=== PATIENT | male | born 1980 | race Caucasian/White ===

== ENCOUNTER 2016-07-27 08:56 | Inpatient (IN) | payer MEDICARE, OTHER ==
[~2016-07-27] VITALS: Ht 170.2 cm; Wt 115.6 kg
[~2016-07-27 08:56] MED LIST: CELE40TA PO; DIOV160T60 PO; GEMF600 PO; PANT20 PO; POTA25TA2 PO; SERO300T2 OR; VENL75XR PO; VITA50TA3 PO
[2016-07-27 09:04] VITALS: BP 139/84; PULSE 109; RESP 20; TEMP 98.3; O2SAT 95
--- NOTE | 2016-07-27 09:28 | PD ---
HPI Chief Complaint: Psychiatric Symptoms Time Seen by Provider: 09:15 Travel History International Travel<30 days: No Contact w/Intl Traveler<30days: No Traveled to known affect area: No History of Present Illness HPI This is a 36-year-old male who presents to the emergency department with history of schizophrenia who presents to the emergency department reporting increasing voices telling him to hurt himself over the past 4 days, constant, severe. He's had thoughts like this in the past but never this bad. He says he is compliant with his schizophrenia medication. He is brought in under a Bentley act. He reportedly [facility] PFSH Past Medical History Autoimmune Disease: Yes Blood Disorders: No Anxiety: Yes Depression: Yes Cancer: No Cardiovascular Problems: Yes High Cholesterol: Yes Chemotherapy: No Diabetes: Yes (METABOLIC SYNDROME) Diminished Hearing: No Endocrine: No Gastrointestinal Disorders: Yes (ENLARGED LIVER) GERD: Yes Genitourinary: No Hypertension: Yes Immune Disorder: No Medical other: Yes (GERD) Musculoskeletal: No Neurologic: No Reproductive: No Respiratory: No Immunizations Current: Yes Radiation Therapy: No Sickle Cell Disease: No Thyroid Disease: No Tetanus Vaccination: Unknown PNEUMOCCOCAL Vaccine (Year): 2 Past Surgical History Abdominal Surgery: Yes (gall bladder 2007) AICD: No Arteriovenous Shunt: No Cholecystectomy: Yes (2007) Insulin Pump: No Joint Replacement: No Pacemaker: No Other Surgery: No Social History Alcohol Use: No Tobacco Use: No Substance Use: No Allergies-Medications (Allergen,Severity, Reaction): Coded Allergies: No Known Allergies (Verified , 07/27/16) Reported Meds & Prescriptions Reported Meds & Active Scripts Active Reported Cerave (Emollient) 1 Cre Cre TOP BID Hydrochlorothiazide 12.5 Mg Cap 12.5 Mg PO DAILY Clobetasol Emollient Topical 0.05% Cream 1 Applic TOPICAL DAILY Sucralfate 1 Gm Tab 1 Gm PO HS on empty stomach [Escitolopram] 10 Mg PO DAILY Triamcinolone (Triamcinolone (Bulk)) 1 Pow Pow 0.1 % TOP BID Hydroxyzine HCl 25 Mg Tab 25 Mg PO HS Flexeril (Cyclobenzaprine HCl) 5 Mg Tab 5 Mg PO BID Trazodone (Trazodone HCl) 100 Mg Tab 100 Mg PO HS Buspirone (Buspirone HCl) 10 Mg Tab 10 Mg PO BID Omeprazole 40 Mg Cap 40 Mg PO DAILY Valsartan 160 Mg Tab 160 Mg PO DAILY Review of Systems Except as stated in HPI: all other systems reviewed are Neg Physical Exam Narrative GENERAL:Well appearing, no acute distress SKIN: Warm and dry. HEAD: Atraumatic. Normocephalic. EYES: Involuntary horizontal eye movements. ENT: Moist mucous membranes NECK: Trachea midline. CARDIOVASCULAR: Regular rate and rhythm. No murmur appreciated. RESPIRATORY: Clear to auscultation. Breath sounds equal bilaterally. GASTROINTESTINAL: Abdomen soft, non-tender, nondistended. MUSCULOSKELETAL: No obvious deformities. NEUROLOGICAL: Awake and alert. No obvious cranial nerve deficits. Moving all extremities. PSYCHIATRIC: Does acknowledge auditory hallucinations, has preserved insight and judgment. Data Data Last Documented VS Vital Signs Date Time Temp Pulse Resp B/P Pulse Ox O2 Delivery O2 Flow Rate FiO2 07/27/16 11:21 91 20 159/87 97 07/27/16 09:04 98.3 Orders Complete Blood Count With Diff (07/27/16 09:15) Comprehensive Metabolic Panel (07/27/16 09:15) Drug Screen, Random Urine (07/27/16 09:15) Psych Screen (07/27/16 09:15) Alcohol (Ethanol) (07/27/16 09:15) Labs Laboratory Tests Test 07/27/16 09:10 White Blood Count 2.3 TH/MM3 Red Blood Count 4.53 MIL/MM3 Hemoglobin 13.6 GM/DL Hematocrit 39.8 % Mean Corpuscular Volume 87.8 FL Mean Corpuscular Hemoglobin 30.1 PG Mean Corpuscular Hemoglobin 34.3 % Concent Red Cell Distribution Width 15.7 % Platelet Count 38 TH/MM3 Mean Platelet Volume 6.9 FL Neutrophils (%) (Auto) 72.3 % Lymphocytes (%) (Auto) 20.4 % Monocytes (%) (Auto) 5.6 % Eosinophils (%) (Auto) 1.1 % Basophils (%) (Auto) 0.6 % Neutrophils # (Auto) 1.7 TH/MM3 Lymphocytes # (Auto) 0.5 TH/MM3 Monocytes # (Auto) 0.1 TH/MM3 Eosinophils # (Auto) 0.0 TH/MM3 Basophils # (Auto) 0.0 TH/MM3 CBC Comment AUTO DIFF Differential Comment AUTO DIFF CONFIRMED Platelet Estimate LOW Platelet Morphology Comment NORMAL Sodium Level 138 MEQ/L Potassium Level 3.3 MEQ/L Chloride Level 104 MEQ/L Carbon Dioxide Level 25.3 MEQ/L Anion Gap 9 MEQ/L Blood Urea Nitrogen 9 MG/DL Creatinine 0.98 MG/DL Estimat Glomerular Filtration 87 ML/MIN Rate Random Glucose 209 MG/DL Calcium Level 8.6 MG/DL Total Bilirubin 0.7 MG/DL Aspartate Amino Transf 38 U/L (AST/SGOT) Alanine Aminotransferase 55 U/L (ALT/SGPT) Alkaline Phosphatase 134 U/L Total Protein 7.7 GM/DL Albumin 3.6 GM/DL Urine Opiates Screen NEG Urine Barbiturates Screen NEG Urine Amphetamines Screen NEG Urine Benzodiazepines Screen NEG Urine Cocaine Screen NEG Urine Cannabinoids Screen NEG Ethyl Alcohol Level LESS THAN 3 MG/DL MDM Medical Decision Making Medical Screen Exam Complete: Yes Emergency Medical Condition: Yes Interpretation(s) afebrile, tachycardic leukopenia, thrombocytopenia mild hypokalemia urine drug screen negative alcohol negative Differential Diagnosis Schizophrenia, drug intoxication, alcohol intoxication Narrative Course This is a 36-year-old male who presents to the emergency department with auditory hallucinations saying that he should kill himself. He has a history of schizophrenia. Labs demonstrate leukopenia as well as, thrombocytopenia. In the absence of an alternate explanation a think this may be related to his antipsychotic medications. I spoke to his caregiver at [facility] who reports that he recently was taken off of his Seroquel because his platelets were low. He has been seeing a toy assembler at [facility] who says he has at problem with his spleen. He said his platelet count was low enough to do anything about it right now. I briefly talked to Dr. Michelle. We both agree that the patient can likely be admitted to the psychiatric service if necessary and have medicine consult on him as this is not an active issue, and seems to be subacute. Dalia Howe MD Jul 27, 2016 09:28
[2016-07-27 09:53] LABS: AUTOMATED NEUTROPHIL # 1.7 TH/MM3 (1.8-7.7); BASOPHIL % 0.6 % (0.0-2.0); EOSINOPHIL % 1.1 % (0.0-4.0); HEMATOCRIT 39.8 % (39.0-51.0); LYMPH % 20.4 % (9.0-44.0); LYMPHOCYTE # 0.5 TH/MM3 (1.0-4.8); MEAN CELL VOLUME 87.8 FL (80.0-100.0); MEAN CORPUSCULAR HEMOGLOBIN 30.1 PG (27.0-34.0); MEAN CORPUSCULAR HGB CONC 34.3 % (32.0-36.0); MONO % 5.6 % (0.0-8.0); NEUT % 72.3 % (16.0-70.0); PLATELET COUNT 38 TH/MM3 (150-450); RED BLOOD COUNT 4.53 MIL/MM3 (4.50-5.90); RED CELL DISTRIBUTION WIDTH 15.7 % (11.6-17.2); WHITE BLOOD COUNT 2.3 TH/MM3 (4.0-11.0)
[2016-07-27 09:58] LABS: AMPHETAMINE, URINE NEG (NEG); BARBITURATES, URINE NEG (NEG); COCAINE, URINE NEG (NEG); HEMO FLAGS AUTO DIFF
[2016-07-27 10:13] LABS: ANION GAP 9 MEQ/L (5-15); AST (GOT) 38 U/L (15-37); BICARBONATE 25.3 MEQ/L (21.0-32.0); BLOOD UREA NITROGEN 9 MG/DL (7-18); CHLORIDE 104 MEQ/L (98-107); GLOMERULAR FILTRATION RATE 87 ML/MIN (>89); POTASSIUM 3.3 MEQ/L (3.5-5.1); SODIUM (NA) 138 MEQ/L (136-145)
[2016-07-27 10:16] LABS: ALKALINE PHOSPHATASE 134 U/L (45-117); ALT (GPT) 55 U/L (12-78); TOTAL BILIRUBIN ADULT 0.7 MG/DL (0.2-1.0)
[2016-07-27 10:40] LABS: PLATELET ESTIMATE SMEAR LOW (NORMAL); PLATELET MORPHOLOGY NORMAL (NORMAL); SCAN/DIFF AUTO DIFF CONFIRMED
[2016-07-27 11:21] VITALS: BP 159/87; PULSE 91; RESP 20; O2SAT 97
[2016-07-27] MEDS ORDERED: HYDR12.57 PO (11:42)
[2016-07-27] MEDS ORDERED: CYCL5TAB PO (11:42)
[2016-07-27] MEDS ORDERED: OMEP40CA2 PO (11:42)
[2016-07-27] MEDS ORDERED: TRAZ100T4 PO (11:42)
[2016-07-27] MEDS ORDERED: VALS1TAB65 PO (11:42)
[2016-07-27] MEDS ORDERED: BUSP10TA PO (11:42)
[2016-07-27] MEDS ORDERED: TRIAPOW6 TOP (11:42)
[2016-07-27] MEDS ORDERED: CERACRE TOP (11:42)
[2016-07-27] MEDS ORDERED: SUCR1TAB PO (11:42)
[2016-07-27] MEDS ORDERED: ESCITALOPRAM PO (11:42)
[2016-07-27] MEDS ORDERED: CLOB0.0571 TOPICAL (11:42)
[2016-07-27] MEDS ORDERED: HYDR-3133 PO (11:42)
[2016-07-27 14:08] VITALS: BP 146/68
[2016-07-27 15:01] VITALS: BP 137/82; PULSE 84; RESP 20; TEMP 97.8; O2SAT 97
[2016-07-27 16:40] VITALS: BP 119/74; PULSE 95; RESP 18; TEMP 98.5; O2SAT 98
[2016-07-27 16:45] VITALS: BP 145/89; PULSE 81; RESP 18; TEMP 98; O2SAT 99
[2016-07-27 17:26] LABS: HDL CHOLESTEROL 34.7 MG/DL (40.0-60.0); LDL CHOLESTEROL 34 MG/DL (0-99)
--- NOTE | 2016-07-27 18:18 | PD.CONS ---
HPI Service [facility] Consult Requested By Psychiatry team Reason for Consult Medical management - low platelet, hyperglycemia Primary Care Physician Non-Staff Diagnoses: History of Present Illness Patient is a 36 year old male who came in to the ED under [facility] act from [facility] secondary to report of increasing voices telling him to hurt himself over the past 4 days. On report, he had thoughts like this in the past but never this bad. He says he is compliant with his schizophrenia medication. He is now admitted to inpatient psychiatry unit for further evaluation. Consulted for medical management for the low platelet count, hyperglycemia. CBC showed leukopenia WBC 2.3, platelet 38. CMP showed hypokalemia 3.3, EGFR at 87, random glucose 209, AST was slight elevation 38, alkaline phosphatase 134. Lipid panel showed cholesterol 90, HDL 34.7. Patient seen today. Patient is blind since . Reports he has depression and has been having hallucinations. Patient states primary medical history includes depression, hallucination, blindness, hypertension. He states that he has low platelets diagnosed about 4 years ago and has been followed by specialist. Review of chart showed, patient has been seen by household appliance installer at [facility] and told he has problem with his spleen. Patient complains of headache, requesting for Tylenol. Otherwise, denies pain and discomfort. Denies SOB/ dyspnea. Denies chest pain, palpitations, headaches, dizziness. Denies fevers, chills, n/v/d. Review of Systems Other Negative except for what is noted on history of present illness. Past Family Social History Allergies: Coded Allergies: No Known Allergies (Verified , 07/27/16) Past Medical History Blind since Depression Anxiety Hallucinations HTN Review of records showed Enlarged liver Metabolic syndrome High cholesterol Past Surgical History Cholecystectomy in 2007 Reported Medications Cerave (Emollient) 1 Cre Cre TOP BID Hydrochlorothiazide 12.5 Mg Cap 12.5 Mg PO DAILY Clobetasol Emollient Topical 0.05% Cream 1 Applic TOPICAL DAILY Sucralfate 1 Gm Tab 1 Gm PO HS on empty stomach [Escitolopram] 10 Mg PO DAILY Triamcinolone (Triamcinolone (Bulk)) 1 Pow Pow 0.1 % TOP BID Hydroxyzine HCl 25 Mg Tab 25 Mg PO HS Flexeril (Cyclobenzaprine HCl) 5 Mg Tab 5 Mg PO BID Trazodone (Trazodone HCl) 100 Mg Tab 100 Mg PO HS Buspirone (Buspirone HCl) 10 Mg Tab 10 Mg PO BID Omeprazole 40 Mg Cap 40 Mg PO DAILY Valsartan 160 Mg Tab 160 Mg PO DAILY Family History Hypertension, sister has bipolar Social History 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 SKIN: No rashes, ecchymoses or lesions. Cool and dry. HEAD: Atraumatic. Normocephalic. No temporal or scalp tenderness. EYES: Blind. No scleral icterus. No injection or drainage. ENT: Nose without bleeding. Throat without erythema. Uvula midline. Airway patent. NECK: Trachea midline. No JVD or lymphadenopathy. Supple, nontender, no meningeal signs. CARDIOVASCULAR: Regular rate and rhythm without murmurs, gallops, or rubs. RESPIRATORY: Clear to auscultation. Breath sounds equal bilaterally. No wheezes , rales, or rhonchi. GASTROINTESTINAL: Abdomen soft, rounded, non-tender, nondistended. BS active 4 MUSCULOSKELETAL: Extremities without clubbing, cyanosis, or edema. No joint tenderness, effusion, or edema noted. No calf tenderness. Negative Homans sign bilaterally. NEUROLOGICAL: Awake and alert. Calm. Motor and sensory grossly within normal limits. Normal speech. Laboratory Laboratory Tests Test 07/27/16 09:10 White Blood Count 2.3 Red Blood Count 4.53 Hemoglobin 13.6 Hematocrit 39.8 Mean Corpuscular Volume 87.8 Mean Corpuscular Hemoglobin 30.1 Mean Corpuscular Hemoglobin 34.3 Concent Red Cell Distribution Width 15.7 Platelet Count 38 Mean Platelet Volume 6.9 Neutrophils (%) (Auto) 72.3 Lymphocytes (%) (Auto) 20.4 Monocytes (%) (Auto) 5.6 Eosinophils (%) (Auto) 1.1 Basophils (%) (Auto) 0.6 Neutrophils # (Auto) 1.7 Lymphocytes # (Auto) 0.5 Monocytes # (Auto) 0.1 Eosinophils # (Auto) 0.0 Basophils # (Auto) 0.0 CBC Comment AUTO DIFF Differential Comment AUTO DIFF CONFIRMED Platelet Estimate LOW Platelet Morphology Comment NORMAL Sodium Level 138 Potassium Level 3.3 Chloride Level 104 Carbon Dioxide Level 25.3 Anion Gap 9 Blood Urea Nitrogen 9 Creatinine 0.98 Estimat Glomerular Filtration 87 Rate Random Glucose 209 Calcium Level 8.6 Total Bilirubin 0.7 Aspartate Amino Transf 38 (AST/SGOT) Alanine Aminotransferase 55 (ALT/SGPT) Alkaline Phosphatase 134 Total Protein 7.7 Albumin 3.6 Triglycerides Level 108 Cholesterol Level 90 LDL Cholesterol 34 HDL Cholesterol 34.7 Cholesterol/HDL Ratio 2.59 Urine Opiates Screen NEG Urine Barbiturates Screen NEG Urine Amphetamines Screen NEG Urine Benzodiazepines Screen NEG Urine Cocaine Screen NEG Urine Cannabinoids Screen NEG Ethyl Alcohol Level LESS THAN 3 Result Diagram: 07/27/16 0910 07/27/16909 Assessment and Plan Problem List: (1) Tension-type headache ICD Code: 307.81 Status: Chronic (2) Dyslipidemia ICD Code: 272.8 Status: Chronic (3) Blindness - both eyes ICD Code: 369.00 Status: Chronic (4) HTN (hypertension) ICD Code: I10 Status: Chronic (5) Thrombocytopenia ICD Code: D69.6 Status: Acute (6) Leukopenia ICD Code: D72.819 Status: Acute (7) Hyperglycemia ICD Code: R73.9 Status: Acute (8) Obese ICD Code: E66.9 Status: Chronic Assessment and Plan Patient is a 36-year-old male who came in [facility] under [facility] act secondary to increasing voices telling him to hurt himself. Admitted to inpatient psychiatry unit for further evaluation. Consulted for medical management. depression, hallucinations -managed by psychiatry team - Check TSH Thrombocytopenia with leukopenia - ? spleen involvement. Possible medication induced. He has been on Seroquel for years and it was stopped secondary to thrombocytopenia. - Patient following household appliance installer as an outpatient. - Repeat CBC tomorrow, if leukopenia persist, will check for HIV Hyperglycemia, DM? - Metabolic syndrome. Random glucose 209, possibly patient ate prior to lab draw - Check hemoglobin A1c - Dietary change ADA 1800 Hypokalemia - potassium replacement - Check BMP tomorrow Elevated liver enzymes - mild elevation AST 38, alkaline phosphatase 134 - Check hepatitis panel. Last hepatitis screen 2008 showed negative results. - Avoid hepatotoxins HTN - continue home meds losartan, hydrochlorothiazide. - Monitor BP trend Blind - monitor for risk for falls. GERD - pantoprazole 20 mg, continue home med Carafate DVT prop ambulation Thank you for this consultation. We will follow patient with you. Written by Jessica Cannon, acting as scribe for Dr. Santos on 07/27/16 at 17:47. Code Status Full code Discussed Condition With Patient, nursing Jessica Taylor Jul 27, 2016 18:18 Catalina Santos MD Jul 27, 2016 18:26
[2016-07-27] MEDS ORDERED: POTASSIUM CHLORIDE 20 MEQ CONTROLLED RELEASE TAB PO ONE (18:30)
[2016-07-27] MEDS: ACETAMINOPHEN 325 MG TAB PO PRN (18:49)
[2016-07-27] MEDS: SUCRALFATE 1 GM TAB PO SCH (22:00)
[2016-07-28 06:01] VITALS: BP 135/75; PULSE 77; RESP 16; TEMP 97.4; O2SAT 96
[2016-07-28 07:49] LABS: AUTOMATED NEUTROPHIL # 1.4 TH/MM3 (1.8-7.7); BASOPHIL % 0.8 % (0.0-2.0); EOSINOPHIL # 0.1 TH/MM3 (0-0.4); EOSINOPHIL % 2.9 % (0.0-4.0); HEMATOCRIT 40.9 % (39.0-51.0); LYMPH % 31.5 % (9.0-44.0); LYMPHOCYTE # 0.8 TH/MM3 (1.0-4.8); MEAN CELL VOLUME 87.3 FL (80.0-100.0); MEAN CORPUSCULAR HEMOGLOBIN 30.2 PG (27.0-34.0); MEAN CORPUSCULAR HGB CONC 34.6 % (32.0-36.0); MONO % 7.3 % (0.0-8.0); NEUT % 57.5 % (16.0-70.0); PLATELET COUNT 42 TH/MM3 (150-450); RED BLOOD COUNT 4.68 MIL/MM3 (4.50-5.90); RED CELL DISTRIBUTION WIDTH 15.7 % (11.6-17.2); WHITE BLOOD COUNT 2.4 TH/MM3 (4.0-11.0)
[2016-07-28 07:51] LABS: HEMO FLAGS AUTO DIFF
[2016-07-28 08:01] LABS: BICARBONATE 29.2 MEQ/L (21.0-32.0); POTASSIUM 4.2 MEQ/L (3.5-5.1)
[2016-07-28] MEDS: PANTOPRAZOLE SOD 20 MG DELAYED RELEASE TAB PO SCH (08:25)
[2016-07-28] MEDS: HYDROCHLOROTHIAZIDE 12.5 MG CAP PO SCH (08:25)
[2016-07-28] MEDS: VALSARTAN 160 MG TAB PO SCH (08:26)
[2016-07-28 09:42] LABS: HEMOGLOBIN A1a 0.8 %; HEMOGLOBIN A1b 0.9 %; HEMOGLOBIN Ao 86.3 %; HEMOGLOBIN F 0.7 %; HEMOGLOBIN LA1C 2.6 %; HEMOGLOBIN P3 3.5 %
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
[2016-07-28 12:23] LABS: PLATELET ESTIMATE SMEAR LOW (NORMAL); PLATELET MORPHOLOGY NORMAL (NORMAL); SCAN/DIFF AUTO DIFF CONFIRMED
[2016-07-28] MEDS: QUEtiapine FUMARATE 100 MG TAB PO SCH ×2 (12:24→17:19)
[2016-07-28 17:40] LABS: BICARBONATE 30.6 MEQ/L (21.0-32.0); POTASSIUM 4.6 MEQ/L (3.5-5.1)
[2016-07-28 18:32] VITALS: BP 132/89; PULSE 83; RESP 16; TEMP 98.2; O2SAT 98
[2016-07-28] MEDS: SUCRALFATE 1 GM TAB PO SCH (21:11)
[2016-07-29 05:15] VITALS: BP 97/55; PULSE 96; RESP 18; TEMP 98; O2SAT 95
[2016-07-29 07:33] LABS: AUTOMATED NEUTROPHIL # 1.6 TH/MM3 (1.8-7.7); BASOPHIL % 0.4 % (0.0-2.0); EOSINOPHIL # 0.1 TH/MM3 (0-0.4); EOSINOPHIL % 2.4 % (0.0-4.0); HEMATOCRIT 39.7 % (39.0-51.0); LYMPHOCYTE # 0.8 TH/MM3 (1.0-4.8); MEAN CELL VOLUME 87.9 FL (80.0-100.0); MEAN CORPUSCULAR HEMOGLOBIN 30.2 PG (27.0-34.0); MEAN CORPUSCULAR HGB CONC 34.3 % (32.0-36.0); MONO % 8.7 % (0.0-8.0); NEUT % 59.5 % (16.0-70.0); PLATELET COUNT 42 TH/MM3 (150-450); RED BLOOD COUNT 4.52 MIL/MM3 (4.50-5.90); WHITE BLOOD COUNT 2.7 TH/MM3 (4.0-11.0)
[2016-07-29 07:36] LABS: HEMO FLAGS AUTO DIFF
[2016-07-29 08:25] LABS: PLATELET ESTIMATE SMEAR LOW (NORMAL); PLATELET MORPHOLOGY NORMAL (NORMAL); SCAN/DIFF AUTO DIFF CONFIRMED
[2016-07-29] MEDS: HYDROCHLOROTHIAZIDE 12.5 MG CAP PO SCH (08:32)
[2016-07-29] MEDS: VALSARTAN 160 MG TAB PO SCH (08:32)
[2016-07-29] MEDS: PANTOPRAZOLE SOD 20 MG DELAYED RELEASE TAB PO SCH (08:32)
[2016-07-29] MEDS: QUEtiapine FUMARATE 100 MG TAB PO SCH ×3 (08:32→16:43)
--- NOTE | 2016-07-29 12:56 | HHI.PYPN ---
Subjective Remarks Patient was seen and discussed with the staff electronic warfare officer. Patient tends to isolate himself and stays in his room he was encouraged to participate in all the therapeutic activity and go out. He has been sleeping fairly well. He still feels depressed frustrated and also admitted to hearing occasional voices but trying to learn to ignore it. He is compliant in taking medication no side effects were complained. Continue with the same treatment Review of Systems Except as stated in HPI: all other systems reviewed are Neg Psychiatric: COMPLAINS OF: Mood changes, Depression, Hallucinations, Delusions Objective Alert: Yes [place]: Person, Place, Situation Mood: Anxious, Depressed Affect: Euthymic Memory Intact: Recent (mildly impaired) Hallucinations: Auditory (patient admitted to occasional auditory hallucinations) Delusions: No Delusion Type: Other (no obvious delusional belief at this time patient is guarded and suspicious) Suicidal: Ideation ( denies any suicidal ideation intentions or plan) Homicidal: Ideation (denies) Insight/Judgement Fair Labs Test 07/28/16 07/29/16 16:16 06:47 Sodium Level 141 MEQ/L Potassium Level 4.6 MEQ/L Chloride Level 105 MEQ/L Carbon Dioxide Level 30.6 MEQ/L Anion Gap 5 MEQ/L Blood Urea Nitrogen 7 MG/DL Creatinine 0.93 MG/DL Estimat Glomerular Filtration 92 ML/MIN Rate Random Glucose 126 MG/DL Calcium Level 8.6 MG/DL Thyroid Stimulating Hormone 2.020 uIU/ML 3rd Gen White Blood Count 2.7 TH/MM3 Red Blood Count 4.52 MIL/MM3 Hemoglobin 13.6 GM/DL Hematocrit 39.7 % Mean Corpuscular Volume 87.9 FL Mean Corpuscular Hemoglobin 30.2 PG Mean Corpuscular Hemoglobin 34.3 % Concent Red Cell Distribution Width 16.0 % Platelet Count 42 TH/MM3 Mean Platelet Volume 6.6 FL Neutrophils (%) (Auto) 59.5 % Lymphocytes (%) (Auto) 29.0 % Monocytes (%) (Auto) 8.7 % Eosinophils (%) (Auto) 2.4 % Basophils (%) (Auto) 0.4 % Neutrophils # (Auto) 1.6 TH/MM3 Lymphocytes # (Auto) 0.8 TH/MM3 Monocytes # (Auto) 0.2 TH/MM3 Eosinophils # (Auto) 0.1 TH/MM3 Basophils # (Auto) 0.0 TH/MM3 CBC Comment AUTO DIFF Differential Comment AUTO DIFF CONFIRMED Platelet Estimate LOW Platelet Morphology Comment NORMAL Vitals/IOs Vital Signs Date Time Temp Pulse Resp B/P Pulse Ox O2 Delivery O2 Flow Rate FiO2 07/29/16 05:15 98.0 96 18 97/55 95 07/27/16 15:01 Room Air Assessment & Plan Problem List: (1) schizoaffective disorder depressed Assessment & Plan Estimated LOS: days Justification for Cont. Inpt. Monitoring of the medication and stabilization of the mood Request HC Surrog/Guard Advoc?: No Sunil Curtis MD Jul 29, 2016 12:56
--- NOTE | 2016-07-29 15:55 | HHI.PR ---
Subjective Remarks Follow-up visit leukopenia with thrombocytopenia, elevated liver enzymes. Patient seen today. Reports is doing well. Denies pain and discomfort. Denies SOB/ dyspnea. Denies chestpain, palpitations, headaches, dizziness. Denies fevers, chills, n/v/d. Objective Vitals Vital Signs Date Time Temp Pulse Resp B/P Pulse Ox O2 Delivery O2 Flow Rate FiO2 07/29/16 05:15 98.0 96 18 97/55 95 07/28/16 18:32 98.2 83 16 132/89 98 Result Diagram: 07/29/16 0647 07/28/16 1616 Objective Remarks GENERAL: This is a obese, well-developed patient, in no apparent distress. SKIN: No rashes, ecchymoses or lesions. Cool and dry. HEAD: Atraumatic. Normocephalic. No temporal or scalp tenderness. EYES: Blind. No scleral icterus. No injection or drainage. ENT: Nose without bleeding. Throat without erythema. Uvula midline. Airway patent. NECK: Trachea midline. No JVD or lymphadenopathy. Supple, nontender, no meningeal signs. CARDIOVASCULAR: Regular rate and rhythm without murmurs, gallops, or rubs. RESPIRATORY: Clear to auscultation. Breath sounds equal bilaterally. No wheezes , rales, or rhonchi. GASTROINTESTINAL: Abdomen soft, rounded, non-tender, nondistended. BS active 4 MUSCULOSKELETAL: Extremities without clubbing, cyanosis, or edema. No joint tenderness, effusion, or edema noted. No calf tenderness. Negative Homans sign bilaterally. NEUROLOGICAL: Awake and alert. Calm. Motor and sensory grossly within normal limits. Normal speech. A/P Problem List: (1) Tension-type headache ICD Code: 307.81 Status: Chronic (2) Dyslipidemia ICD Code: 272.8 Status: Chronic (3) Blindness - both eyes ICD Code: 369.00 Status: Chronic (4) HTN (hypertension) ICD Code: I10 Status: Chronic (5) Thrombocytopenia ICD Code: D69.6 Status: Acute (6) Leukopenia ICD Code: D72.819 Status: Acute (7) Hyperglycemia ICD Code: R73.9 Status: Acute (8) Obese ICD Code: E66.9 Status: Chronic Assessment and Plan Patient is a 36-year-old male who came in today hospital under [place] act secondary to increasing voices telling him to hurt himself. Admitted to inpatient psychiatry unit for further evaluation. Consulted for medical management. depression, hallucinations -managed by psychiatry team - TSH 2.020 Thrombocytopenia with leukopenia - ? spleen involvement. Possible medication induced. He has been on Seroquel for years and it was stopped secondary to thrombocytopenia. - Patient following sound engineering technician as an outpatient. - WBC 2.3 --> 2.4 --> 2.7, Platelet 38 --> 42 --> 42. Chronic. - follow sound engineering technician in outpatient when discharged. Hyperglycemia, DM? - Metabolic syndrome. Random glucose 209, possibly patient ate prior to lab draw - hemoglobin A1c 4.9 - Dietary change ADA 1800. Hypokalemia - potassium replacement - Check BMP tomorrow Elevated liver enzymes - mild elevation AST 38, alkaline phosphatase 134 - Check hepatitis panel. Last hepatitis screen 2008 showed negative results. - Avoid hepatotoxins HTN - continue home meds losartan, hydrochlorothiazide. - Monitor BP trend Blind - monitor for risk for falls. GERD - pantoprazole 20 mg, continue home med Carafate DVT prop ambulation Discussed with patient, RN Stable from Hospitalist standpoint. We will sign off. Reconsult as needed. Written by Jessica Cannon, acting as scribe for Dr. Fernandez on 07/29/16 at 15:10. Attending Statement The documentation accurately reflects the work performed [id number] by me, Dr. Fernandez on 07/29/16 at 15:10. Jessica Taylor Jul 29, 2016 15:55 Norman Fernandez MD Aug 09, 2016 13:08
[2016-07-29 18:56] VITALS: BP 132/80; PULSE 90; RESP 18; TEMP 98.1; O2SAT 98
[2016-07-29] MEDS: SUCRALFATE 1 GM TAB PO SCH (20:58)
[2016-07-30 06:15] VITALS: BP 116/92; PULSE 74; RESP 18; TEMP 98.2
[2016-07-30] MEDS: QUEtiapine FUMARATE 100 MG TAB PO SCH ×3 (08:26→17:14)
[2016-07-30] MEDS: PANTOPRAZOLE SOD 20 MG DELAYED RELEASE TAB PO SCH (08:26)
[2016-07-30] MEDS: HYDROCHLOROTHIAZIDE 12.5 MG CAP PO SCH (08:26)
[2016-07-30] MEDS: VALSARTAN 160 MG TAB PO SCH (08:26)
--- NOTE | 2016-07-30 14:18 | HHI.PYPN ---
Subjective Remarks Patient was seen and discussed with the licensed staff mft. Patient reported that he has been doing little bit better but still admitted to hearing voices telling him to do something to harm himself but he is learning to ignore those hallucinations. No behavior or management problem reported. Patient signed voluntary and willing to cooperate with the treatment. Continue the same treatment no side effects were complained he is compliant in taking medication Review of Systems Except as stated in HPI: all other systems reviewed are Neg Psychiatric: COMPLAINS OF: Mood changes, Depression, Hallucinations, Delusions Objective Alert: Yes [place]: Person, Place, Situation Mood: Anxious, Depressed Affect: Euthymic Memory Intact: Recent (mildly impaired) Hallucinations: Auditory (patient admitted to occasional auditory hallucinations) Delusions: No Delusion Type: Other (no obvious delusional belief at this time patient is guarded and suspicious) Suicidal: Ideation ( denies any suicidal ideation intentions or plan) Homicidal: Ideation (denies) Insight/Judgement Improving Vitals/IOs Vital Signs Date Time Temp Pulse Resp B/P Pulse Ox O2 Delivery O2 Flow Rate FiO2 07/30/16 06:15 98.2 74 18 116/92 07/29/16 18:56 98 07/27/16 15:01 Room Air Assessment & Plan Problem List: (1) schizoaffective disorder depressed Assessment & Plan Estimated LOS: days Justification for Cont. Inpt. Monitoring of the medication to stabilize his mood and hallucinations Request HC Surrog/Guard Advoc?: No Sunil Curtis MD Jul 30, 2016 14:18
[2016-07-30] MEDS: SUCRALFATE 1 GM TAB PO SCH (20:10)
[2016-07-30 20:11] VITALS: BP 133/69; PULSE 90; RESP 18; TEMP 98; O2SAT 96
[2016-07-31 05:46] VITALS: BP 131/66; PULSE 99; RESP 18; TEMP 97.5; O2SAT 96
[2016-07-31] MEDS: QUEtiapine FUMARATE 100 MG TAB PO SCH ×3 (09:18→18:24)
[2016-07-31] MEDS: PANTOPRAZOLE SOD 20 MG DELAYED RELEASE TAB PO SCH (09:18)
[2016-07-31] MEDS: HYDROCHLOROTHIAZIDE 12.5 MG CAP PO SCH (09:19)
[2016-07-31] MEDS: VALSARTAN 160 MG TAB PO SCH (09:19)
--- NOTE | 2016-07-31 11:36 | HHI.PYPN ---
Subjective Remarks Patient was seen and discussed with the staff editor. Patient reported that he has been feeling better his voices are fading away but still occasionally he does admit to hearing voices. He is trying to ignore it. No behavior or management problem reported. He is compliant in taking medication. No side effects were complained. Reportedly he can go back to his [facility]. Once he is medically stable. Continue with the same treatment Review of Systems Except as stated in HPI: all other systems reviewed are Neg Psychiatric: COMPLAINS OF: Mood changes, Depression, Hallucinations Objective Alert: Yes [place]: Person, Place, Situation Mood: Anxious, Depressed Affect: Euthymic Memory Intact: Recent (mildly impaired) Hallucinations: Auditory (patient admitted to occasional auditory hallucinations) Delusions: No Delusion Type: Other (no obvious delusional belief at this time patient is guarded and suspicious) Suicidal: Ideation ( denies any suicidal ideation intentions or plan) Homicidal: Ideation (denies) Insight/Judgement Fair to limited Vitals/IOs Vital Signs Date Time Temp Pulse Resp B/P Pulse Ox O2 Delivery O2 Flow Rate FiO2 07/31/16 05:46 97.5 99 18 131/66 96 07/27/16 15:01 Room Air Assessment & Plan Problem List: (1) schizoaffective disorder depressed Assessment & Plan Estimated LOS: days Justification for Cont. Inpt. Monitoring of the medication to control psychotic symptoms Request HC Surrog/Guard Advoc?: Sunil Jacobson MD Jul 31, 2016 11:36
[2016-07-31 18:00] VITALS: BP 136/83; PULSE 111; RESP 17; TEMP 97.4; O2SAT 98
[2016-07-31] MEDS: SUCRALFATE 1 GM TAB PO SCH (20:26)
[2016-08-01 05:26] VITALS: BP 130/76; PULSE 94; RESP 18; TEMP 97.9
[2016-08-01] MEDS: HYDROCHLOROTHIAZIDE 12.5 MG CAP PO SCH (09:26)
[2016-08-01] MEDS: PANTOPRAZOLE SOD 20 MG DELAYED RELEASE TAB PO SCH (09:26)
[2016-08-01] MEDS: VALSARTAN 160 MG TAB PO SCH (09:26)
[2016-08-01] MEDS: QUEtiapine FUMARATE 100 MG TAB PO SCH ×3 (09:27→18:05)
--- NOTE | 2016-08-01 09:53 | HHI.PYPN ---
Subjective Remarks Patient was seen and discussed with the junior staff accountant. Patient reported that at least he is not hearing any more voices telling him to hurt himself. But he does feel depressed and frustrated. No behavior or management problem reported. No other side effects were complained. He is compliant in taking medication. Continue with the same treatment Review of Systems Except as stated in HPI: all other systems reviewed are Neg Psychiatric: COMPLAINS OF: Mood changes, Depression Objective Alert: Yes [place]: Person, Place, Situation Mood: Depressed Affect: Euthymic Memory Intact: Recent (mildly impaired) Hallucinations: Auditory (patient denied any active auditory or visual hallucinations) Delusions: No Delusion Type: Other (no obvious delusional belief at this time patient is guarded and suspicious) Suicidal: Ideation ( denies any suicidal ideation intentions or plan) Homicidal: Ideation (denies) Insight/Judgement Fair Vitals/IOs Vital Signs Date Time Temp Pulse Resp B/P Pulse Ox O2 Delivery O2 Flow Rate FiO2 08/01/16 05:26 97.9 94 18 130/76 07/31/16 18:00 98 Assessment & Plan Problem List: (1) schizoaffective disorder depressed Assessment & Plan Estimated LOS: days Justification for Cont. Inpt. Monitoring other medication to stabilize mood Request HC Surrog/Guard Advoc?: No Sunil Curtis MD Aug 01, 2016 09:53
[2016-08-01] MEDS: CITALOPRAM HYDROBROMIDE 40 MG TAB PO SCH (12:53)
[2016-08-01 18:00] VITALS: BP 112/65; PULSE 93; RESP 16; TEMP 97.5; O2SAT 98
[2016-08-01] MEDS: ACETAMINOPHEN 325 MG TAB PO PRN (18:43)
[2016-08-01] MEDS: SUCRALFATE 1 GM TAB PO SCH (20:30)
[2016-08-02 06:09] VITALS: BP 115/66; PULSE 91; RESP 18; TEMP 97.9
[2016-08-02] MEDS: VALSARTAN 160 MG TAB PO SCH (08:44)
[2016-08-02] MEDS: CITALOPRAM HYDROBROMIDE 40 MG TAB PO SCH (08:44)
[2016-08-02] MEDS: QUEtiapine FUMARATE 100 MG TAB PO SCH ×3 (08:44→17:56)
[2016-08-02] MEDS: HYDROCHLOROTHIAZIDE 12.5 MG CAP PO SCH (08:44)
[2016-08-02] MEDS: PANTOPRAZOLE SOD 20 MG DELAYED RELEASE TAB PO SCH (08:45)
--- NOTE | 2016-08-02 10:56 | HHI.PYPN ---
Subjective Remarks Patient was seen and discussed with the technical staff engineer. Patient reported that he has been feeling better but still somewhat scared to go back to his place. No behavior or management problem reported here. He has been sleeping better. He denied any active auditory or visual hallucinations. No side effects were complained. Continue with the same treatment Review of Systems Except as stated in HPI: all other systems reviewed are Neg Psychiatric: COMPLAINS OF: Mood changes, Depression Objective Alert: Yes [place]: Person, Place, Situation Mood: Depressed Affect: Euthymic Memory Intact: Recent (mildly impaired) Hallucinations: Auditory (patient denied any active auditory or visual hallucinations) Delusions: No Delusion Type: Other (no obvious delusional belief at this time patient is guarded and suspicious) Suicidal: Ideation ( denies any suicidal ideation intentions or plan) Homicidal: Ideation (denies) Insight/Judgement Fair to limited Vitals/IOs Vital Signs Date Time Temp Pulse Resp B/P Pulse Ox O2 Delivery O2 Flow Rate FiO2 08/02/16 06:09 97.9 91 18 115/66 08/01/16 18:00 98 Intake and Output 08/01/16 08/01/16 08/02/16 08:00 16:00 00:00 Intake Total 480 ml Balance 480 ml Assessment & Plan Problem List: (1) schizoaffective disorder depressed Assessment & Plan Estimated LOS: days Justification for Cont. Inpt. Monitoring or the medication to stabilize his mood Request HC Surrog/Guard Advoc?: No Sunil Curtis MD Aug 02, 2016 10:56
[2016-08-02 17:30] VITALS: BP 127/80; PULSE 90; RESP 18; TEMP 97.8; O2SAT 96
[2016-08-02] MEDS: SUCRALFATE 1 GM TAB PO SCH (20:22)
[2016-08-03 05:45] VITALS: BP 124/79; PULSE 93; RESP 18; TEMP 98; O2SAT 99
[2016-08-03] MEDS: VALSARTAN 160 MG TAB PO SCH (08:57)
[2016-08-03] MEDS: PANTOPRAZOLE SOD 20 MG DELAYED RELEASE TAB PO SCH (08:57)
[2016-08-03] MEDS: HYDROCHLOROTHIAZIDE 12.5 MG CAP PO SCH (08:57)
[2016-08-03] MEDS: QUEtiapine FUMARATE 100 MG TAB PO SCH ×3 (08:57→18:12)
[2016-08-03] MEDS: ACETAMINOPHEN 325 MG TAB PO PRN (08:57)
[2016-08-03] MEDS: CITALOPRAM HYDROBROMIDE 40 MG TAB PO SCH (08:57)
--- NOTE | 2016-08-03 14:32 | HHI.PYPN ---
Subjective Remarks Patient was seen and case discussed with nursing. Patient is pleasant and cooperative with exam. His compliant with all of his medications. Describes his mood today as "kind of sad." There is evident intellectual dysfunction. Denies suicidal ideations thought or plan. Behaving well on the unit. Says his auditory hallucinations have resolved Objective Alert: Yes [place]: Person, Place, Situation Mood: Depressed Affect: Euthymic Memory Intact: Recent (mildly impaired) Hallucinations: Auditory (patient denied any active auditory or visual hallucinations) Delusions: No Delusion Type: Other (no obvious delusional belief at this time patient is guarded and suspicious) Suicidal: Ideation ( denies any suicidal ideation intentions or plan) Homicidal: Ideation (denies) Insight/Judgement Poor Vitals/IOs Vital Signs Date Time Temp Pulse Resp B/P Pulse Ox O2 Delivery O2 Flow Rate FiO2 08/03/16 05:45 98.0 93 18 124/79 99 Assessment & Plan Problem List: (1) schizoaffective disorder depressed Assessment & Plan Continue current treatment plan Justification for Cont. Inpt. Patient will decompensate in a less restrictive setting Request HC Surrog/Guard Advoc?: No Jeffery Monroe DO Aug 03, 2016 14:32
[2016-08-03 18:39] VITALS: BP 119/69; PULSE 91; RESP 16; TEMP 97.7; O2SAT 97
[2016-08-03] MEDS: SUCRALFATE 1 GM TAB PO SCH (20:29)
[2016-08-04 04:36] VITALS: BP 118/56; PULSE 88; RESP 18; TEMP 97.2; O2SAT 95
[2016-08-04] MEDS: VALSARTAN 160 MG TAB PO SCH (09:02)
[2016-08-04] MEDS: CITALOPRAM HYDROBROMIDE 40 MG TAB PO SCH (09:02)
[2016-08-04] MEDS: HYDROCHLOROTHIAZIDE 12.5 MG CAP PO SCH (09:02)
[2016-08-04] MEDS: PANTOPRAZOLE SOD 20 MG DELAYED RELEASE TAB PO SCH (09:02)
[2016-08-04] MEDS: QUEtiapine FUMARATE 100 MG TAB PO SCH ×3 (09:02→18:17)
--- NOTE | 2016-08-04 11:36 | HHI.PYPN ---
Subjective Remarks Patient was seen and case discussed with nursing. Patient is pleasant and cooperative with exam. He is blind but has prominent nystagmus on interview. Not complaining of any pain. Describes his mood is "a little better." Denies auditory visual hallucinations. Denies suicidal ideations thought content or plan. Behaving well on the unit. Compliant with medications Objective Alert: Yes [place]: Person, Place, Situation Mood: Depressed Affect: Euthymic Memory Intact: Recent (mildly impaired) Hallucinations: Auditory (patient denied any active auditory or visual hallucinations) Delusions: No Delusion Type: Other (no obvious delusional belief at this time patient is guarded and suspicious) Suicidal: Ideation ( denies any suicidal ideation intentions or plan) Homicidal: Ideation (denies) Insight/Judgement Poor Vitals/IOs Vital Signs Date Time Temp Pulse Resp B/P Pulse Ox O2 Delivery O2 Flow Rate FiO2 08/04/16 04:36 97.2 88 18 118/56 95 Assessment & Plan Problem List: (1) schizoaffective disorder depressed Assessment & Plan Consult medicine Justification for Cont. Inpt. Patient will decompensate in a less restrictive setting Request HC Surrog/Guard Advoc?: No Jeffery Monroe DO Aug 04, 2016 11:36
[2016-08-04] MEDS: THIAMINE HCL 100 MG TAB PO SCH (12:55)
--- NOTE | 2016-08-04 14:32 | HHI.PR ---
Subjective Remarks Reconsult for nystagmus in patient who is congenitally blind Patient does not notice any difference in his eyes or vision. Per RN the patient was noticed to have, "eye twitching" which was not noticed before. Patient seen inpatient psychiatric center. Patient able to ambulate without any difficulties reports no focal deficits. Patient reports to be in his normal state of health denies shortness of breath chest pain nausea vomiting diarrhea constipation fevers or chills. Patient's speech is fluent no facial asymmetry noted. Objective Vitals Vital Signs Date Time Temp Pulse Resp B/P Pulse Ox O2 Delivery O2 Flow Rate FiO2 08/04/16 04:36 97.2 88 18 118/56 95 08/03/16 18:39 97.7 91 16 119/69 97 Objective Remarks GENERAL: This is a obese, well-developed patient, in no apparent distress. SKIN: No rashes, ecchymoses or lesions. Cool and dry. HEAD: Atraumatic. Normocephalic. No temporal or scalp tenderness. EYES: Blind. No scleral icterus. No injection or drainage. ENT: Nose without bleeding. Throat without erythema. Uvula midline. Airway patent. NECK: Trachea midline. No JVD or lymphadenopathy. Supple, nontender, no meningeal signs. CARDIOVASCULAR: Regular rate and rhythm without murmurs, gallops, or rubs. RESPIRATORY: Clear to auscultation. Breath sounds equal bilaterally. No wheezes , rales, or rhonchi. GASTROINTESTINAL: Abdomen soft, rounded, non-tender, nondistended. BS active 4 MUSCULOSKELETAL: Extremities without clubbing, cyanosis, or edema. No joint tenderness, effusion, or edema noted. No calf tenderness. Negative Homans sign bilaterally. NEUROLOGICAL: Awake and alert. Calm. Motor and sensory grossly within normal limits. Normal speech. A/P Problem List: (1) Tension-type headache ICD Code: 307.81 Status: Chronic (2) Dyslipidemia ICD Code: 272.8 Status: Chronic (3) Blindness - both eyes ICD Code: 369.00 Status: Chronic (4) HTN (hypertension) ICD Code: I10 Status: Chronic (5) Thrombocytopenia ICD Code: D69.6 Status: Acute (6) Leukopenia ICD Code: D72.819 Status: Acute (7) Hyperglycemia ICD Code: R73.9 Status: Acute (8) Obese ICD Code: E66.9 Status: Chronic Assessment and Plan Patient is a 36-year-old male who came in [facility] under [place] act secondary to increasing voices telling him to hurt himself. Admitted to inpatient psychiatry unit for further evaluation. Consulted for nystagmus. depression, hallucinations -managed by psychiatry team - TSH 2.020 Thrombocytopenia with leukopenia - ? spleen involvement. Possible medication induced. He has been on Seroquel for years and it was stopped secondary to thrombocytopenia. - Patient following [employer]oc operations intelligence officer as an outpatient. - WBC 2.3 --> 2.4 --> 2.7, Platelet 38 --> 42 --> 42. Chronic. - follow [employer] operations intelligence officer in outpatient when discharged. Hyperglycemia, DM? - Metabolic syndrome. Random glucose 209, possibly patient ate prior to lab draw - hemoglobin A1c 4.9 - Dietary change ADA 1800. Elevated liver enzymes - mild elevation AST 38, alkaline phosphatase 134 - Check hepatitis panel. Last hepatitis screen 2008 showed negative results. - Avoid hepatotoxins HTN - continue home meds losartan, hydrochlorothiazide. - Monitor BP trend Blind - monitor for risk for falls. Nystagmus and patient was congenitally blind. Patient has been restarted on Seroquel 07/28/2016 Patient also started on Celexa 07/30/2016 Possible side effects from these medications will defer to psychiatric team for adjustment or taper of these medications GERD - pantoprazole 20 mg, continue home med Carafate DVT prop ambulation Discussed with patient, RN Written by Jayla Ferrer, acting as scribe for Dr. Fernandez on 08/04/16 at 14:32. Attending Statement The documentation accurately reflects the work performed [id number] by me, Dr. Fernandez on 08/04/16 at 14:32. Jayla Ferrer Aug 04, 2016 14:32 Norman Fernandez MD Aug 09, 2016 13:19
[2016-08-04 19:00] VITALS: BP 132/73; PULSE 91; RESP 18; TEMP 97.6; O2SAT 97
[2016-08-04] MEDS: SUCRALFATE 1 GM TAB PO SCH (20:51)
[2016-08-05 05:13] VITALS: BP 116/71; PULSE 91; RESP 18; TEMP 98.9; O2SAT 97
[2016-08-05] MEDS: THIAMINE HCL 100 MG TAB PO SCH (09:00)
[2016-08-05] MEDS: HYDROCHLOROTHIAZIDE 12.5 MG CAP PO SCH (09:00)
[2016-08-05] MEDS: QUEtiapine FUMARATE 100 MG TAB PO SCH ×3 (09:00→20:07)
[2016-08-05] MEDS: PANTOPRAZOLE SOD 20 MG DELAYED RELEASE TAB PO SCH (09:00)
[2016-08-05] MEDS: CITALOPRAM HYDROBROMIDE 40 MG TAB PO SCH (09:00)
[2016-08-05] MEDS: VALSARTAN 160 MG TAB PO SCH (09:00)
--- NOTE | 2016-08-05 13:15 | HHI.PR ---
Subjective Remarks Follow up: for nystagmus in patient who is congenitally blind Patient does not notice any difference in his eyes or vision. Patient able to ambulate without any difficulties reports no focal deficits. Patient reports to be in his normal state of health denies shortness of breath chest pain nausea vomiting diarrhea constipation fevers or chills. Patient's speech is fluent no facial asymmetry noted. Patient does note that he has a rash to bilateral groin folds and buttock area. Patient reports that the rash areas do itch. Objective Vitals Vital Signs Date Time Temp Pulse Resp B/P Pulse Ox O2 Delivery O2 Flow Rate FiO2 08/05/16 05:13 98.9 91 18 116/71 97 08/04/16 19:00 97.6 91 18 132/73 97 Objective Remarks GENERAL: This is a obese, well-developed patient, in no apparent distress. SKIN: rash consistent with [place] bilateral groin and buttock fold HEAD: Atraumatic. Normocephalic. No temporal or scalp tenderness. EYES: Blind. No scleral icterus. No injection or drainage. horizontal nystagmus noted ENT: Nose without bleeding. Throat without erythema. Uvula midline. Airway patent. NECK: Trachea midline. No JVD or lymphadenopathy. Supple, nontender, no meningeal signs. CARDIOVASCULAR: Regular rate and rhythm without murmurs, gallops, or rubs. RESPIRATORY: Clear to auscultation. Breath sounds equal bilaterally. No wheezes , rales, or rhonchi. GASTROINTESTINAL: Abdomen soft, rounded, non-tender, nondistended. BS active 4 MUSCULOSKELETAL: Extremities without clubbing, cyanosis, or edema. No joint tenderness, effusion, or edema noted. No calf tenderness. Negative Homans sign bilaterally. NEUROLOGICAL: Awake and alert. Calm. Motor and sensory grossly within normal limits. Normal speech. A/P Problem List: (1) Tension-type headache ICD Code: 307.81 Status: Chronic (2) Dyslipidemia ICD Code: 272.8 Status: Chronic (3) Blindness - both eyes ICD Code: 369.00 Status: Chronic (4) HTN (hypertension) ICD Code: I10 Status: Chronic (5) Thrombocytopenia ICD Code: D69.6 Status: Acute (6) Leukopenia ICD Code: D72.819 Status: Acute (7) Hyperglycemia ICD Code: R73.9 Status: Acute (8) Obese ICD Code: E66.9 Status: Chronic Assessment and Plan Patient is a 36-year-old male who came in today hospital under [place] act secondary to increasing voices telling him to hurt himself. Admitted to inpatient psychiatry unit for further evaluation. Consulted for nystagmus. depression, hallucinations -managed by psychiatry team - TSH 2.020 Thrombocytopenia with leukopenia - ? spleen involvement. Possible medication induced. He has been on Seroquel for years and it was stopped secondary to thrombocytopenia. - Patient following senior power scheduler as an outpatient. - WBC 2.3 --> 2.4 --> 2.7, Platelet 38 --> 42 --> 42. Chronic. - follow senior power scheduler in outpatient when discharged. Hyperglycemia, DM? - Metabolic syndrome. Random glucose 209, possibly patient ate prior to lab draw - hemoglobin A1c 4.9 - Dietary change ADA 1800. Elevated liver enzymes - mild elevation AST 38, alkaline phosphatase 134 - Check hepatitis panel. Last hepatitis screen 2008 showed negative results. - Avoid hepatotoxins HTN - continue home meds losartan, hydrochlorothiazide. - Monitor BP trend Blind - monitor for risk for falls. Nystagmus - chronic, verified with senior care No further interventions at this time GERD - pantoprazole 20 mg, continue home med Carafate [place] rash bilateral groin and buttock area instructed patient to try and keep area clean and dry Nystatin cream BID DVT prop ambulation Discussed with patient, RN Patient medically stable will sign off Recommend patient follow up with PC after DC Written by Jayla Ferrer, acting as scribe for Dr. Zheng on 08/05/16 at 13:15. The documentation accurately reflects the work performed [id number] by me on at 16:43. Jayla Ferrer Aug 05, 2016 13:15 Jeremy Zheng MD Aug 05, 2016 16:43
--- NOTE | 2016-08-05 15:43 | HHI.PYPN ---
Subjective Remarks Patient seen in hallway with nurse Edmund and medical student Alice, patient calm pleasant lady responsive to me. Says is feeling better though acknowledges the voices are persisting not quite as irritating as they were before. He states he [facility] he does wish to return there when he is feeling somewhat better. He does denies suicidality at this time. Will increase his Seroquel from 100 mg 3 times a day to 200 mg twice a day Review of Systems Except as stated in HPI: all other systems reviewed are Neg Objective Alert: Yes [place]: Person, Place, Situation Mood: Depressed Affect: Euthymic Memory Intact: Recent (mildly impaired) Hallucinations: Auditory (patient denied any active auditory or visual hallucinations) Delusions: No Delusion Type: Other (no obvious delusional belief at this time patient is guarded and suspicious) Suicidal: Ideation ( denies any suicidal ideation intentions or plan) Homicidal: Ideation (denies) Insight/Judgement Poor Vitals/IOs Vital Signs Date Time Temp Pulse Resp B/P Pulse Ox O2 Delivery O2 Flow Rate FiO2 08/05/16 05:13 98.9 91 18 116/71 97 Assessment & Plan Problem List: (1) schizoaffective disorder depressed Assessment & Plan Estimated LOS: days patient somewhat improved with his depression though the auditory hallucinations persist to medication adjustment above Justification for Cont. Inpt. At this time patient will decompensate if placed in a lower level of care Discharge Planning To be determined Request HC Surrog/Guard Advoc?: No Justyn Stanley MD Aug 05, 2016 15:43
[2016-08-05] MEDS: NYSTATIN 100,000 UNIT/GM CREAM 15 GM TOPICAL SCH ×2 (16:00→20:07)
[2016-08-05 18:43] VITALS: BP 120/69; PULSE 97; RESP 18; TEMP 98.1; O2SAT 94
[2016-08-05] MEDS: SUCRALFATE 1 GM TAB PO SCH (20:06)
[2016-08-06 05:34] VITALS: BP 130/85; PULSE 86; RESP 18; TEMP 98
[2016-08-06] MEDS: THIAMINE HCL 100 MG TAB PO SCH (08:46)
[2016-08-06] MEDS: HYDROCHLOROTHIAZIDE 12.5 MG CAP PO SCH (08:46)
[2016-08-06] MEDS: CITALOPRAM HYDROBROMIDE 40 MG TAB PO SCH (08:46)
[2016-08-06] MEDS: QUEtiapine FUMARATE 100 MG TAB PO SCH (08:46)
[2016-08-06] MEDS: NYSTATIN 100,000 UNIT/GM CREAM 15 GM TOPICAL SCH ×2 (08:46→20:16)
[2016-08-06] MEDS: PANTOPRAZOLE SOD 20 MG DELAYED RELEASE TAB PO SCH (08:46)
[2016-08-06] MEDS: VALSARTAN 160 MG TAB PO SCH (08:49)
--- NOTE | 2016-08-06 13:24 | HHI.PYPN ---
Subjective Remarks Patient seen in [place] with nurse Edmund, patient calm pleasant with me continues to state he is having auditory hallucinations frequently intensely that her markedly disturbing to him telling him to do bad things. He states he has had these for significant period of time. He does denies suicidality himself. For now we will condense Seroquel to 400 mg at at bedtime and add Respinol M tab 1 mg twice a day Review of Systems Except as stated in HPI: all other systems reviewed are Neg Objective Alert: Yes [place]: Person, Place, Situation Mood: Depressed Affect: Euthymic Memory Intact: Recent (mildly impaired) Hallucinations: Auditory (patient denied any active auditory or visual hallucinations) Delusions: No Delusion Type: Other (no obvious delusional belief at this time patient is guarded and suspicious) Suicidal: Ideation ( denies any suicidal ideation intentions or plan) Homicidal: Ideation (denies) Insight/Judgement Poor Vitals/IOs Vital Signs Date Time Temp Pulse Resp B/P Pulse Ox O2 Delivery O2 Flow Rate FiO2 08/06/16 05:34 98.0 86 18 130/85 08/05/16 18:43 94 Assessment & Plan Problem List: (1) schizoaffective disorder depressed Assessment & Plan Estimated LOS: days patient continue psychotic though with some insight. The auditory hallucinations persist Yaneli medication adjustments about Justification for Cont. Inpt. At the present time the patient would decompensate if placed in a lower level of care Discharge Planning To be determined Request HC Surrog/Guard Advoc?: No Justyn Stanley MD Aug 06, 2016 13:24
[2016-08-06] MEDS: risperiDONE ODT 1 MG TAB PO SCH (20:16)
[2016-08-06] MEDS: SUCRALFATE 1 GM TAB PO SCH (20:16)
[2016-08-06] MEDS ORDERED: QUEtiapine FUMARATE 200 MG TAB PO SCH (21:00)
[2016-08-07 06:21] VITALS: BP 129/74; PULSE 103; RESP 18; TEMP 97.8; O2SAT 98
[2016-08-07] MEDS: THIAMINE HCL 100 MG TAB PO SCH (08:58)
[2016-08-07] MEDS: CITALOPRAM HYDROBROMIDE 40 MG TAB PO SCH (08:58)
[2016-08-07] MEDS: risperiDONE ODT 1 MG TAB PO SCH ×2 (08:58→21:21)
[2016-08-07] MEDS: HYDROCHLOROTHIAZIDE 12.5 MG CAP PO SCH (08:58)
[2016-08-07] MEDS: PANTOPRAZOLE SOD 20 MG DELAYED RELEASE TAB PO SCH (08:58)
[2016-08-07] MEDS: NYSTATIN 100,000 UNIT/GM CREAM 15 GM TOPICAL SCH ×2 (08:59→21:21)
[2016-08-07] MEDS: ACETAMINOPHEN 325 MG TAB PO PRN (09:35)
--- NOTE | 2016-08-07 12:09 | HHI.PYPN ---
Subjective Remarks Patient seen in [facility] with nurse Anum, chart review, patient continues calm pleasant with me though acknowledges continued auditory hallucinations though perhaps there fading somewhat. Compliant medications. He has been no behavioral problems Review of Systems Except as stated in HPI: all other systems reviewed are Neg Objective Alert: Yes [place]: Person, Place, Situation Mood: Depressed Affect: Euthymic Memory Intact: Recent (mildly impaired) Hallucinations: Auditory (patient denied any active auditory or visual hallucinations) Delusions: No Delusion Type: Other (no obvious delusional belief at this time patient is guarded and suspicious) Suicidal: Ideation ( denies any suicidal ideation intentions or plan) Homicidal: Ideation (denies) Insight/Judgement Very poor Vitals/IOs Vital Signs Date Time Temp Pulse Resp B/P Pulse Ox O2 Delivery O2 Flow Rate FiO2 08/07/16 06:21 97.8 103 18 129/74 98 Assessment & Plan Problem List: (1) schizoaffective disorder depressed Assessment & Plan Estimated LOS: days patient remained psychotic though most significant behavioral problems, awaiting Tegretol blood level tomorrow Justification for Cont. Inpt. At this time patient decompensated placed in lower level of care Discharge Planning To be determined Request HC Surrog/Guard Advoc?: No Justyn Stanley MD Aug 07, 2016 12:09
[2016-08-07] MEDS: VALSARTAN 160 MG TAB PO SCH (12:51)
[2016-08-07 18:53] VITALS: BP 130/71; PULSE 79; RESP 18; TEMP 97.4; O2SAT 99
[2016-08-07] MEDS: QUEtiapine FUMARATE 200 MG TAB PO SCH (21:21)
[2016-08-07] MEDS: SUCRALFATE 1 GM TAB PO SCH (21:21)
[2016-08-08 05:03] VITALS: BP 135/61; PULSE 105; RESP 18; TEMP 97.8; O2SAT 94
[2016-08-08] MEDS: risperiDONE ODT 1 MG TAB PO SCH ×2 (08:43→21:27)
[2016-08-08] MEDS: CITALOPRAM HYDROBROMIDE 40 MG TAB PO SCH (08:43)
[2016-08-08] MEDS: THIAMINE HCL 100 MG TAB PO SCH (08:43)
[2016-08-08] MEDS: PANTOPRAZOLE SOD 20 MG DELAYED RELEASE TAB PO SCH (08:43)
[2016-08-08] MEDS: HYDROCHLOROTHIAZIDE 12.5 MG CAP PO SCH (08:43)
[2016-08-08] MEDS: NYSTATIN 100,000 UNIT/GM CREAM 15 GM TOPICAL SCH ×2 (09:00→21:27)
[2016-08-08] MEDS: VALSARTAN 160 MG TAB PO SCH (09:00)
--- NOTE | 2016-08-08 09:43 | HHI.PYPN ---
Subjective Remarks Patient seen in [facility] floor staff, chart review, patient continues calm pleasant with me compliant medications states voices continue to persist though somewhat softer. For now continue treatment Review of Systems Except as stated in HPI: all other systems reviewed are Neg Objective Alert: Yes [place]: Person, Place, Situation Mood: Depressed Affect: Euthymic Memory Intact: Recent (mildly impaired) Hallucinations: Auditory (patient denied any active auditory or visual hallucinations) Delusions: No Delusion Type: Other (no obvious delusional belief at this time patient is guarded and suspicious) Suicidal: Ideation ( denies any suicidal ideation intentions or plan) Homicidal: Ideation (denies) Insight/Judgement Poor Vitals/IOs Vital Signs Date Time Temp Pulse Resp B/P Pulse Ox O2 Delivery O2 Flow Rate FiO2 08/08/16 05:03 97.8 105 18 135/61 94 Assessment & Plan Problem List: (1) schizoaffective disorder depressed Assessment & Plan Estimated LOS: days patient calm cooperative compliant medications though his psychosis persists for now continue treatment Justification for Cont. Inpt. At this time patient will decompensate if placed in a lower level of care Discharge Planning To be determined Request HC Surrog/Guard Advoc?: No Justyn Stanley MD Aug 08, 2016 09:43
[2016-08-08 18:26] VITALS: BP 132/81; PULSE 92; RESP 18; TEMP 98.1; O2SAT 92
[2016-08-08 18:36] VITALS: BP 132/81; PULSE 92; RESP 18; TEMP 98.1; O2SAT 98
[2016-08-08] MEDS: SUCRALFATE 1 GM TAB PO SCH (21:27)
[2016-08-08] MEDS: QUEtiapine FUMARATE 200 MG TAB PO SCH (21:27)
[2016-08-09 05:06] VITALS: BP 116/59; PULSE 106; RESP 18; TEMP 98.8; O2SAT 92
[2016-08-09] MEDS: NYSTATIN 100,000 UNIT/GM CREAM 15 GM TOPICAL SCH (09:00)
[2016-08-09] MEDS: VALSARTAN 160 MG TAB PO SCH (09:10)
[2016-08-09] MEDS: HYDROCHLOROTHIAZIDE 12.5 MG CAP PO SCH (09:10)
[2016-08-09] MEDS: risperiDONE ODT 1 MG TAB PO SCH (09:11)
[2016-08-09] MEDS: PANTOPRAZOLE SOD 20 MG DELAYED RELEASE TAB PO SCH (09:11)
[2016-08-09] MEDS: CITALOPRAM HYDROBROMIDE 40 MG TAB PO SCH (09:11)
[2016-08-09] MEDS: THIAMINE HCL 100 MG TAB PO SCH (09:11)
--- NOTE | 2016-08-09 10:39 | HHI.PYPN ---
Subjective Remarks Patient seen in day room with medical student Alice, chart review, patient calm cooperative with the dose remains somewhat childlike. Is compliant with medications. Patient is the voices are diminishing though still persistent though somewhat less intrusive. He was denies suicidality at this time. For now continue treatment patient remains calm and behavioral control hope we can consider discharging him on Saturday 08/12 Review of Systems Except as stated in HPI: all other systems reviewed are Neg Objective Alert: Yes [place]: Person, Place, Situation Mood: Depressed Affect: Euthymic Memory Intact: Recent (mildly impaired) Hallucinations: Auditory (patient denied any active auditory or visual hallucinations) Delusions: No Delusion Type: Other (no obvious delusional belief at this time patient is guarded and suspicious) Suicidal: Ideation ( denies any suicidal ideation intentions or plan) Homicidal: Ideation (denies) Insight/Judgement Very poor Vitals/IOs Vital Signs Date Time Temp Pulse Resp B/P Pulse Ox O2 Delivery O2 Flow Rate FiO2 08/09/16 05:06 98.8 106 18 116/59 92 Assessment & Plan Problem List: (1) schizoaffective disorder depressed Assessment & Plan Estimated LOS: days patient continue psychotic though somewhat softening, behaviors remain under control. For now continue treatment patient remains under good control consider discharge on Saturday 08/12 Justification for Cont. Inpt. At this time patient will decompensate the placed in the lower level of care Discharge Planning To be determined Request HC Surrog/Guard Advoc?: No Justyn Stanley MD Aug 09, 2016 10:39
[2016-08-09] MEDS ORDERED: SERO400T PO (12:12)
[2016-08-09] MEDS ORDERED: RISP1TAB54 PO (12:12)
[2016-08-09] MEDS ORDERED: CELE40TA PO (12:12)
[2016-08-09] MEDS ORDERED: NYST15T TOPICAL (12:12)
[2016-08-09] MEDS ORDERED: PANT20 PO (12:12)
[2016-08-09] MEDS ORDERED: VITA100T2 PO (12:12)
[2016-08-09] MEDS ORDERED: CARA1TAB6 PO (12:12)
[2016-08-09] MEDS ORDERED: HYDR12.57 PO (12:12)
[2016-08-09] MEDS ORDERED: DIOV160T6 PO (12:12)
--- NOTE | 2016-08-09 12:18 | HHI.DS ---
Psychiatry Discharge Summary Inpatient Psychiatric care?: Yes Advance Directive: No Reason Not Provided: Refused Mental Health AdvanceDirective: No Health Care Proxy: No Admission Admission Date Jul 27, 2016 at 16:19 Admission Diagnosis: (1) schizoaffective disorder depressed Brief History This is a 36-year-old white male known to the Center came to the emergency room voluntarily because he wanted to get some help for his voices. Patient claimed that lately for the last couple weeks the voices are increasing and bothering him and telling him to hurt himself. Patient also was banging his head against the wall in the facility that he was in. He had been having difficulty sleeping. He claimed that he used to take Seroquel that was helping him but they stopped it. He denied any suicidal ideation intentions or plan. He is willing to cooperate with the treatment he slept okay in the hospital yesterday. No behavior or management problem reported he is quite and keeps to himself in his room. Tobacco Use In Past 30 Days: No Tobacco Past 30 Days Alcohol Use: Never Hospital Course Was initially progress note written for today. However after than note was written there is medication with the patient's prison they have continue to assess the patient they feel he is safe and stable they do wish him to return home to his room to his familiar surroundings. Patient is willing to do that. care home is willing to take responsibility for further medical care medication management and mental health follow-up. Thus patient will be discharged today to that facility patient is calm cooperative and willing to do that he knows the voices do persist but are markedly diminished Results Blood Pressure 116 / 59 Vital Signs Date Time Temp Pulse Resp B/P Pulse Ox O2 Delivery O2 Flow Rate FiO2 08/09/16 05:06 98.8 106 18 116/59 92 Urine toxicology negative Summary of Procedures None done Pending results at discharge: No Medications # of Antipsychotic meds at D/C: 2 Appropriate >1 Antipsych meds?: 2 (would recommend that outpatient clinician consider weaning off either Seroquel or Respinol as patient's auditory hallucinations diminish) Approp Antipsych med options 1 - Minimum of three failed multiple trials of monotherapy. 2 - Documented plan to taper to monotherapy due to previous use of multiple meds OR cross-taper in progress at D/C. 3 - Documentation of augmentation of Clozapine. 4 - Justification other than those listed in allowable values 1-3, document here : Discharge Discharge Date: Aug 09, 2016 Discharge Diagnosis: (1) Schizoaffective disorder, depressive type Diagnosis: Principal ICD Code: F25.1 Mental Status Exam at Disch Patient is alert slightly built male. He has calm cooperative. He is normal active. His mood is euthymic to somewhat restricted affect shows decreased range intensity. Speech rate and rhythm is slow somewhat tangential and concrete. There is vague tangentiality and circumstantiality. There are vague auditory hallucinations that are resolving. There are no visual hallucinations. No delusions. Insight and judgment is poor cognition and somewhat restricted Pt Condition on Discharge: Stable Discharge Disposition: ACLF/JAIL Discharge Instructions Diet Instructions: As Tolerated, No Restrictions Activities you can perform: Regular-No Restrictions Scheduled Appointment: [facility] Appointment Date: Aug 13, 2016 Appointment Time: 7:30am Discharge Time > 30 minutes Discharge/Advance Care Plan Health Problems: (1) schizoaffective disorder depressed Goals to promote your health * To prevent worsening of your condition and complications * To maintain your health at the optimal level Directions to meet your goals Take your medications as prescribed Follow your dietary instruction Follow activity as directed Keep your appointments as scheduled Take your immunizations and boosters as scheduled If your symptoms worsen call your PCP, if no PCP go to Urgent Care Center or Emergency Room For 13/01 questions related to your inpatient stay or results of tests pending at discharge, please contact Dr. Justyn Stanley at Smoking is Dangerous to Your Health. Avoid second hand smoking Justyn Stanley MD Aug 09, 2016 12:18
== END 2016-08-09 13:50 | DRG 885 ==
LOC: NEPE 08:56 → NEDA 16:19 → H260 16:41
PROVIDERS: ADMIT Psychiatry & Neurology Psychiatry; ATTEND Psychiatry & Neurology Psychiatry
DX: F25.1 Schizoaffective disorder, depressive type (principal); D69.6 Thrombocytopenia, unspecified; E11.9 Type 2 diabetes mellitus without complications; I10 Essential (primary) hypertension; E78.00 Pure hypercholesterolemia, unspecified; E78.5 Hyperlipidemia, unspecified; B37.2 Candidiasis of skin and nail; F41.9 Anxiety disorder, unspecified; K21.9 Gastro-esophageal reflux disease without esophagitis; H54.0 Blindness, both eyes; Z87.891 Personal history of nicotine dependence; G44.209 Tension-type headache, unspecified, not intractable; E66.9 Obesity, unspecified; E87.6 Hypokalemia; H55.00 Unspecified nystagmus; G47.9 Sleep disorder, unspecified
CPT/HCPCS: 80048; 80053; 80061; 80074; 80307; 80320; 82607; 83036; 84425; 84443; 85025; 99285

== ENCOUNTER 2017-03-09 14:38 | Inpatient (IN) | payer MEDICARE, OTHER ==
[~2017-03-09] VITALS: Ht 167.6 cm; Wt 118.3 kg
[~2017-03-09 14:38] MED LIST changes: +BUSP10TA PO; +CARA1TAB6 PO; +CERACRE TOP; +CLOB0.0571 TOPICAL; +CYCL5TAB PO; +DIOV160T6 PO; -DIOV160T60 PO; +ESCITALOPRAM PO; -GEMF600 PO; +HYDR-3133 PO; +HYDR12.57 PO; +NYST15T TOPICAL; +OMEP40CA2 PO; -POTA25TA2 PO; +RISP1TAB54 PO; -SERO300T2 OR; +SERO400T PO; +TRAZ100T4 PO; +TRIAPOW6 TOP; -VENL75XR PO; +VITA100T2 PO; -VITA50TA3 PO
[2017-03-09 15:15] VITALS: BP 138/79; PULSE 110; RESP 19; TEMP 98.6; O2SAT 97
--- NOTE | 2017-03-09 15:30 | PD ---
HPI Chief Complaint: Psychiatric Symptoms Time Seen by Provider: 15:07 Travel History International Travel<30 days: No Contact w/Intl Traveler<30days: No Traveled to known affect area: No History of Present Illness HPI The patient is a 36-year-old male who presents to the emergency department from his longterm in [facility] for auditory hallucinations and suicidal thoughts. The patient has a history of schizoaffective disorder for which he takes Seroquel. However, the patient states he started hearing voices yesterday telling him to harm himself. He does have thoughts of harming himself , and attempted to hurt himself earlier today by banging his head on the wall. He does complain of mild headache with abrasion on top of the head. The patient is legally blind. He does admit to auditory hallucinations, denies any visual hallucinations. He denies any alcohol use or illicit drug use. Symptoms are moderate, possibly exacerbated by history of schizoaffective disorder, and there are no current alleviating factors. PFSH Past Medical History Autoimmune Disease: Yes Blood Disorders: No Anxiety: Yes Depression: Yes Cancer: No Cardiovascular Problems: Yes High Cholesterol: Yes Chemotherapy: No Diabetes: Yes (METABOLIC SYNDROME) Patient Takes Glucophage: No Diminished Hearing: No Endocrine: No Gastrointestinal Disorders: Yes (ENLARGED LIVER) GERD: Yes Genitourinary: No Headaches: Yes Hypertension: Yes Immune Disorder: No Medical other: Yes (GERD) Musculoskeletal: No Neurologic: No Psychiatric: Yes Reproductive: No Respiratory: No Immunizations Current: Yes Radiation Therapy: No Sickle Cell Disease: No Thyroid Disease: No PNEUMOCCOCAL Vaccine (Year): 2 Past Surgical History Abdominal Surgery: Yes (gall bladder 2007) AICD: No Arteriovenous Shunt: No Cholecystectomy: Yes (2007) Insulin Pump: No Joint Replacement: No Pacemaker: No Other Surgery: No Social History Alcohol Use: No Tobacco Use: No Substance Use: No Allergies-Medications (Allergen,Severity, Reaction): Coded Allergies: No Known Allergies (Verified , 03/09/17) Reported Meds & Prescriptions Reported Meds & Active Scripts Active Diovan (Valsartan) 160 Mg Tab 160 Mg PO DAILY Carafate (Sucralfate) 1 Gm Tab 1 Gm PO HS Seroquel (Quetiapine Fumarate) 400 Mg Tab 400 Mg PO HS Protonix (Pantoprazole Sodium) 20 Mg Tab 20 Mg PO DAILY Nystatin Topical (Nystatin) 100,000 unit/gm Cream 1 Applic TOPICAL Q12HR Hydrochlorothiazide 12.5 Mg Cap 12.5 Mg PO DAILY Celexa (Citalopram Hydrobromide) 40 Mg Tab 40 Mg PO DAILY Reported Lyrica (Pregabalin) 75 Mg Cap 75 Mg PO DAILY Trazodone (Trazodone HCl) 100 Mg Tablet 200 Mg PO HS Doc-Q-Lax (Sennosides-Docusate Sodium) 8.6-50 Mg Tab 1 Tab PO BID Vitamin B-1 (Thiamine HCl) 100 Mg Tab 100 Mg PO DAILY Cerave (Emollient) 1 Cre Cre TOP BID [Escitolopram] 10 Mg PO DAILY Triamcinolone (Triamcinolone (Bulk)) 1 Pow Pow 0.1 % TOP BID Hydroxyzine HCl 25 Mg Tab 25 Mg PO HS Flexeril (Cyclobenzaprine HCl) 5 Mg Tab 5 Mg PO BID Review of Systems Except as stated in HPI: all other systems reviewed are Neg HENT: Positive: Headaches Skin: Positive Other (abrasion to the head after banging his head against a wall) Psychiatric: Positive: Suicidal Ideations, Disorder of Thought Physical Exam Narrative GENERAL: Awake, alert, pleasant 36-year-old male who appears his stated age and is in no acute respiratory distress. SKIN: Focused skin assessment warm/dry. Abrasion to the frontal scalp just within the hairline. HEAD: Atraumatic. Normocephalic. EYES: Notable nystagmus noted to the eyes bilaterally. Patient is unable to see my shape or change in light within the room. ENT: No nasal bleeding or discharge. Mucous membranes pink and moist. NECK: Trachea midline. No JVD. CARDIOVASCULAR: Regular rate and rhythm. No murmur appreciated. Heart rate in the 90s. RESPIRATORY: No accessory muscle use. Clear to auscultation. Breath sounds equal bilaterally. GASTROINTESTINAL: Abdomen soft, obese, no rebound tenderness. MUSCULOSKELETAL: No obvious deformities. No clubbing. No cyanosis. No edema. NEUROLOGICAL: Awake and alert. No obvious cranial nerve deficits. Motor grossly within normal limits. Normal speech. Follows commands without difficulty. Legally blind, unable to see shapes or changes in light environmental within the room. PSYCHIATRIC: Slightly odd affect. Data Data Last Documented VS Vital Signs Date Time Temp Pulse Resp B/P (MAP) Pulse Ox O2 Delivery O2 Flow Rate FiO2 03/09/17 15:15 98.6 110 19 138/79 (98) 97 Orders Orders Complete Blood Count With Diff (03/09/17 15:14) Comprehensive Metabolic Panel (03/09/17 15:14) Psych Screen (03/09/17 15:14) Drug Screen, Random Urine (03/09/17 15:14) Labs Laboratory Tests Test 03/09/17 15:43 White Blood Count 1.7 TH/MM3 Red Blood Count 4.34 MIL/MM3 Hemoglobin 13.4 GM/DL Hematocrit 39.1 % Mean Corpuscular Volume 90.0 FL Mean Corpuscular Hemoglobin 30.8 PG Mean Corpuscular Hemoglobin Concent 34.3 % Red Cell Distribution Width 15.1 % Platelet Count 41 TH/MM3 Mean Platelet Volume 6.9 FL Neutrophils (%) (Auto) 61.4 % Lymphocytes (%) (Auto) 30.5 % Monocytes (%) (Auto) 6.5 % Eosinophils (%) (Auto) 1.1 % Basophils (%) (Auto) 0.5 % Neutrophils # (Auto) 1.1 TH/MM3 Lymphocytes # (Auto) 0.5 TH/MM3 Monocytes # (Auto) 0.1 TH/MM3 Eosinophils # (Auto) 0.0 TH/MM3 Basophils # (Auto) 0.0 TH/MM3 CBC Comment AUTO DIFF Blood Urea Nitrogen 10 MG/DL Creatinine 0.91 MG/DL Random Glucose 253 MG/DL Total Protein 8.2 GM/DL Albumin 3.7 GM/DL Calcium Level 8.1 MG/DL Alkaline Phosphatase 174 U/L Aspartate Amino Transf (AST/SGOT) 42 U/L Alanine Aminotransferase (ALT/SGPT) 51 U/L Total Bilirubin 0.7 MG/DL Sodium Level 134 MEQ/L Potassium Level 3.7 MEQ/L Chloride Level 101 MEQ/L Carbon Dioxide Level 26.5 MEQ/L Anion Gap 7 MEQ/L Estimat Glomerular Filtration Rate 94 ML/MIN Urine Opiates Screen NEG Urine Barbiturates Screen NEG Urine Amphetamines Screen NEG Urine Benzodiazepines Screen NEG Urine Cocaine Screen NEG Urine Cannabinoids Screen NEG MDM Medical Decision Making Medical Screen Exam Complete: Yes Emergency Medical Condition: Yes Medical Record Reviewed: Yes Interpretation(s) Laboratory Tests Test 03/09/17 15:43 White Blood Count 1.7 TH/MM3 Red Blood Count 4.34 MIL/MM3 Hemoglobin 13.4 GM/DL Hematocrit 39.1 % Mean Corpuscular Volume 90.0 FL Mean Corpuscular Hemoglobin 30.8 PG Mean Corpuscular Hemoglobin Concent 34.3 % Red Cell Distribution Width 15.1 % Platelet Count 41 TH/MM3 Mean Platelet Volume 6.9 FL Neutrophils (%) (Auto) 61.4 % Lymphocytes (%) (Auto) 30.5 % Monocytes (%) (Auto) 6.5 % Eosinophils (%) (Auto) 1.1 % Basophils (%) (Auto) 0.5 % Neutrophils # (Auto) 1.1 TH/MM3 Lymphocytes # (Auto) 0.5 TH/MM3 Monocytes # (Auto) 0.1 TH/MM3 Eosinophils # (Auto) 0.0 TH/MM3 Basophils # (Auto) 0.0 TH/MM3 CBC Comment AUTO DIFF Blood Urea Nitrogen 10 MG/DL Creatinine 0.91 MG/DL Random Glucose 253 MG/DL Total Protein 8.2 GM/DL Albumin 3.7 GM/DL Calcium Level 8.1 MG/DL Alkaline Phosphatase 174 U/L Aspartate Amino Transf (AST/SGOT) 42 U/L Alanine Aminotransferase (ALT/SGPT) 51 U/L Total Bilirubin 0.7 MG/DL Sodium Level 134 MEQ/L Potassium Level 3.7 MEQ/L Chloride Level 101 MEQ/L Carbon Dioxide Level 26.5 MEQ/L Anion Gap 7 MEQ/L Estimat Glomerular Filtration Rate 94 ML/MIN Urine Opiates Screen NEG Urine Barbiturates Screen NEG Urine Amphetamines Screen NEG Urine Benzodiazepines Screen NEG Urine Cocaine Screen NEG Urine Cannabinoids Screen NEG Differential Diagnosis Differential diagnosis includes schizoaffective disorder, schizophrenia, auditory hallucinations, bipolar affective disorder, Bentley act, psychosis. Narrative Course Labs were drawn and sent. Psychiatric evaluation was ordered. The patient's white count was low and the platelets are low, however, I reviewed the EMR previous labs reveal that the patient has a history of leukopenia and thrombocytopenia with normal hemoglobin. This is not acute. Glucose is mildly elevated. The patient is medically cleared to be evaluated by psychiatry. Disposition as per psych. Diagnosis Primary Impression: Schizoaffective disorder, depressive type Condition: Stable Francesco Kelly MD Mar 09, 2017 15:30
[2017-03-09 15:53] LABS: AUTOMATED NEUTROPHIL # 1.1 TH/MM3 (1.8-7.7); BASOPHIL % 0.5 % (0.0-2.0); EOSINOPHIL % 1.1 % (0.0-4.0); HEMATOCRIT 39.1 % (39.0-51.0); LYMPH % 30.5 % (9.0-44.0); LYMPHOCYTE # 0.5 TH/MM3 (1.0-4.8); MEAN CORPUSCULAR HEMOGLOBIN 30.8 PG (27.0-34.0); MEAN CORPUSCULAR HGB CONC 34.3 % (32.0-36.0); MONO % 6.5 % (0.0-8.0); NEUT % 61.4 % (16.0-70.0); PLATELET COUNT 41 TH/MM3 (150-450); RED BLOOD COUNT 4.34 MIL/MM3 (4.50-5.90); RED CELL DISTRIBUTION WIDTH 15.1 % (11.6-17.2); WHITE BLOOD COUNT 1.7 TH/MM3 (4.0-11.0)
[2017-03-09 15:54] LABS: HEMO FLAGS AUTO DIFF
[2017-03-09] MEDS ORDERED: VITA100T54 PO (16:00)
[2017-03-09] MEDS ORDERED: TRAZ100T6 PO (16:00)
[2017-03-09] MEDS ORDERED: LYRI75CA PO (16:00)
[2017-03-09] MEDS ORDERED: DOC-8.6T PO (16:00)
[2017-03-09 16:15] LABS: ALKALINE PHOSPHATASE 174 U/L (45-117); TOTAL BILIRUBIN ADULT 0.7 MG/DL (0.2-1.0)
[2017-03-09 16:18] LABS: ALT (GPT) 51 U/L (12-78); ANION GAP 7 MEQ/L (5-15); AST (GOT) 42 U/L (15-37); BICARBONATE 26.5 MEQ/L (21.0-32.0); BLOOD UREA NITROGEN 10 MG/DL (7-18); CHLORIDE 101 MEQ/L (98-107); GLOMERULAR FILTRATION RATE 94 ML/MIN (>89); SODIUM (NA) 134 MEQ/L (136-145)
[2017-03-09 16:22] LABS: POTASSIUM 3.7 MEQ/L (3.5-5.1)
[2017-03-09 17:22] LABS: BANDS 3 % (0-6); NEUTROPHIL # MANUAL DIFF 1.2 TH/MM3 (1.8-7.7); POLYS (SEG NEUTROPHILS) 68 % (16-70); WBC DIFF SAMPLE 100
[2017-03-09 17:23] LABS: PLATELET ESTIMATE SMEAR LOW (NORMAL); PLATELET MORPHOLOGY NORMAL (NORMAL); SCAN/DIFF FINAL DIFF MANUAL
[2017-03-09 17:35] VITALS: BP 122/75; PULSE 87; RESP 17; O2SAT 97
[2017-03-10 06:27] VITALS: BP 121/80; PULSE 83; RESP 18
[2017-03-10] MEDS ORDERED: BENZTROPINE MESYLATE 2 MG/2 ML VIAL IM PRN (10:15)
[2017-03-10] MEDS ORDERED: MAGNESIUM HYDROXIDE SUSP 30 ML CUP PO PRN (10:15)
[2017-03-10] MEDS ORDERED: ALUMINUM/MAGNESIUM/SIMETH 30 ML CUP PO PRN (10:15)
[2017-03-10] MEDS ORDERED: BENZTROPINE MESYLATE 1 MG TAB PO PRN (10:15)
[2017-03-10] MEDS ORDERED: LORazepam 1 MG TAB PO PRN (10:15)
[2017-03-10] MEDS ORDERED: LORazepam 2 MG/ML VIAL IM PRN (10:15)
[2017-03-10 10:35] VITALS: BP 127/75; PULSE 87; RESP 18
[2017-03-10] MEDS ORDERED: TRIAMCINOLONE ACETONIDE 0.1% CREAM 15 GM TOPICAL SCH (11:15)
[2017-03-10 12:16] VITALS: BP 148/80; PULSE 90; RESP 18; TEMP 98; O2SAT 98
--- NOTE | 2017-03-10 16:52 | PD.CONS ---
HPI Service [facility] Hospitalists Consult Requested By Primary Care Physician Unknown Diagnoses: History of Present Illness Mr. Toth is a 36 -year-old male. He has blindness from and reports a history of splenomegaly. He cannot specify but he reports abnormal blood counts as an outpatient and says this is followed as an outpatient but due to his psychiatric illnesses and recurrent relapses he has not been able to pursue medical workup for his abnormal blood counts. In the hospital he find him to be neutropenic and she has thrombocytopenia. These may be the "abnormal blood counts" that he was aware of. Hyperglycemia is also presence of his likely a diabetic, though he doesn't express this as one of his medical conditions. The only surgery he reports is a cholecystectomy. No other complaints today. He does not have any symptoms to report. His main symptoms have been auditory hallucinations. Review of Systems Constitutional: DENIES: Fatigue, Fever, Chills, Change in appetite Endocrine: DENIES: Heat/cold intolerance Eyes: DENIES: Blurred vision, Diplopia, Eye inflammation, Eye pain Ears, nose, mouth, throat: DENIES: Hearing loss, Vertigo, Nasal discharge Respiratory: DENIES: Apneas, Cough, Snoring, Wheezing, Hemoptysis Cardiovascular: DENIES: Chest pain, Palpitations, Syncope Gastrointestinal: DENIES: Abdominal pain, Black stools, Bloody stools Musculoskeletal: DENIES: Joint pain, Muscle aches, Stiffness, Joint Swelling Integumentary: DENIES: Abnormal pigmentation, Nail changes Hematologic/lymphatic: DENIES: Bruising Immunologic/allergic: DENIES: Eczema Neurologic: DENIES: Abnormal gait, Headache Psychiatric: COMPLAINS OF: Hallucinations, DENIES: Anxiety, Confusion Past Family Social History Allergies: Coded Allergies: No Known Allergies (Verified , 03/09/17) Past Medical History Splenomegaly Past Surgical History Cholecystectomy Reported Medications Reported Meds & Active Scripts Active Diovan (Valsartan) 160 Mg Tab 160 Mg PO DAILY Carafate (Sucralfate) 1 Gm Tab 1 Gm PO HS Seroquel (Quetiapine Fumarate) 400 Mg Tab 400 Mg PO HS Protonix (Pantoprazole Sodium) 20 Mg Tab 20 Mg PO DAILY Nystatin Topical (Nystatin) 100,000 unit/gm Cream 1 Applic TOPICAL Q12HR Hydrochlorothiazide 12.5 Mg Cap 12.5 Mg PO DAILY Celexa (Citalopram Hydrobromide) 40 Mg Tab 40 Mg PO DAILY Reported Lyrica (Pregabalin) 75 Mg Cap 75 Mg PO DAILY Trazodone (Trazodone HCl) 100 Mg Tablet 200 Mg PO HS Doc-Q-Lax (Sennosides-Docusate Sodium) 8.6-50 Mg Tab 1 Tab PO BID Vitamin B-1 (Thiamine HCl) 100 Mg Tab 100 Mg PO DAILY Cerave (Emollient) 1 Cre Cre TOP BID [Escitolopram] 10 Mg PO DAILY Triamcinolone (Triamcinolone (Bulk)) 1 Pow Pow 0.1 % TOP BID Hydroxyzine HCl 25 Mg Tab 25 Mg PO HS Flexeril (Cyclobenzaprine HCl) 5 Mg Tab 5 Mg PO BID Family History Patient does not know his family history Social History Past history of smoking, patient says he has not smoked for 4 years No alcohol abuse No illicit drug abuse Physical Exam Vital Signs Vital Signs Date Time Temp Pulse Resp B/P (MAP) Pulse Ox O2 Delivery O2 Flow Rate FiO2 03/10/17 12:16 98.0 90 18 148/80 (102) 98 03/10/17 10:35 87 18 127/75 (92) Room Air 03/10/17 06:27 83 18 121/80 (94) 03/09/17 17:35 87 17 122/75 (91) 97 Room Air Physical Exam GENERAL: NAD, A&Ox3, obese HEAD: Normocephalic. NECK: Supple, trachea midline. No lymphadenopathy. EYES: No scleral icterus. No injection or drainage. Unable to track due to blindness. CARDIOVASCULAR: Regular rate and rhythm without murmurs, gallops, or rubs. RESPIRATORY: Breath sounds equal bilaterally. No accessory muscle use. GASTROINTESTINAL: Abdomen soft, non-tender, nondistended. MUSCULOSKELETAL: No cyanosis, or edema. SKIN: Warm and dry. No bruising. NEURO: No focal neurological deficitis. Result Diagram: 03/09/17 1543 03/09/17 1543 Assessment and Plan Problem List: (1) Schizoaffective disorder, depressive type ICD Code: F25.1 - Schizoaffective disorder, depressive type Status: Acute (2) schizoaffective disorder depressed Status: Acute (3) Tension-type headache Status: Chronic (4) Dyslipidemia Status: Chronic (5) Blindness - both eyes Status: Chronic (6) HTN (hypertension) ICD Code: I10 - Essential (primary) hypertension Status: Chronic (7) Thrombocytopenia ICD Code: D69.6 - Thrombocytopenia, unspecified Status: Acute (8) Leukopenia ICD Code: D72.819 - Decreased white blood cell count, unspecified Status: Acute Assessment and Plan Assessment and plan 36-year-old male, consult for neutropenia/leukopenia, and thrombocytopenia Neutropenia Leukopenia Thrombocytopenia History of splenomegaly Follow CBC Hematology has been consulted Splenomegaly may have a correlation Chronic blindness Supportive care Schizoaffective disorder Continue management per inpatient psychiatry plan DVT prophylaxis Patient is ambulatory and active Elpidio Castro MD Mar 10, 2017 16:52
[2017-03-10] MEDS: ACETAMINOPHEN 325 MG TAB PO PRN (17:52)
[2017-03-10] MEDS ORDERED: DIATRIZOATE MEGLUM/DIATRIZOATE SOD 9 ML CUP PO ONE ×2 (18:40→19:00)
[2017-03-10] MEDS: TRIAMCINOLONE ACETONIDE 0.1% CREAM 15 GM TOPICAL SCH (21:00)
[2017-03-10] MEDS: NYSTATIN 100,000 UNIT/GM CREAM 15 GM TOPICAL SCH (21:00)
[2017-03-10] MEDS: traZODone HCL 100 MG TAB PO SCH (23:11)
[2017-03-10] MEDS: CYCLOBENZAPRINE HCL 10 MG TAB PO SCH (23:11)
[2017-03-10] MEDS: DOCUSATE SODIUM 50 MG/SENNA 8.6 MG TAB PO SCH (23:11)
[2017-03-10] MEDS: hydrOXYzine HCL 25 MG TAB PO SCH (23:12)
[2017-03-10] MEDS: SUCRALFATE 1 GM TAB PO SCH (23:13)
--- NOTE | 2017-03-10 23:16 | RADRPT ---
EXAM DATE/TIME: 03/10/2017 22:56 [facility] COMPARISON: CT ABDOMEN & PELVIS W CONTRAST, March 28, 2009, 2:34. INDICATIONS : Left side abdominal pain, evaluate splenomegaly. ORAL CONTRAST: Prescribed oral contrast ingested. RADIATION DOSE: 28.44 CTDIvol (mGy) MEDICAL HISTORY : Hypertension. Gastroesophageal reflux disease. Liver disease. SURGICAL HISTORY : Cholecystectomy. ENCOUNTER: Initial ACUITY: 2 days PAIN SCALE: 6/10 LOCATION: Abdomen. TECHNIQUE: Volumetric scanning of the abdomen and pelvis was performed. Using automated exposure control and ad justment of the mA and/or kV according to patient size, radiation dose was kept as low as reasonably achievable to obtain optimal diagnostic quality images. DICOM format image data is available electro nically for review and comparison. FINDINGS: LOWER LUNGS: The visualized lower lungs are clear. LIVER: Homogeneous density without lesion. There is no dilation of the biliary tree. The gallbladder is aleksandra gically absent. SPLEEN: The spleen is diffusely enlarged measuring up to 21.5 cm. It is larger from the previous exam. No dis crete mass observed. PANCREAS: Within normal limits. KIDNEYS: Normal in size and shape. There is no mass, stone, or hydronephrosis. ADRENAL GLANDS: Within normal limits. VASCULAR: There is no aortic aneurysm. BOWEL/MESENTERY: The stomach, small bowel, and colon demonstrate no acute abnormality. There is no free intraperitone al air or fluid. ABDOMINAL WALL: Within normal limits. RETROPERITONEUM: There is no lymphadenopathy. BLADDER: No wall thickening or mass. REPRODUCTIVE: Within normal limits. INGUINAL: There is no lymphadenopathy or hernia. MUSCULOSKELETAL: Within normal limits for patient age. CONCLUSION: 1. Significant splenomegaly. The spleen is larger from the 2009 exam. No splenic lesion. 2. Prior cholecystectomy. 3. No acute abnormality. Juan Manuel David Jr., MD on March 10, 2017 at 23:11 Board Certified Radiologist. This report was verified electronically.
[2017-03-11 06:19] VITALS: BP 129/76; PULSE 84; RESP 16; TEMP 97.7; O2SAT 98
--- NOTE | 2017-03-11 08:53 | MB ---
cc: ROLF SONG M.D. DATE OF CONSULTATION 03/10/2017 REASON FOR CONSULTATION: Consult requested by psychiatrist for evaluation of leukopenia and thrombocytopenia. HISTORY OF PRESENT ILLNESS Byron is a 36-year-old unfortunate male. He has a history of blindness since . He also has a history of metabolic syndrome, hypercholesterolemia, depression, schizophrenia, gastroesophageal reflux disease, hypertension and splenomegaly. The patient has been under the care of psychiatrist in [place]. The patient has been referred to sr. manager marketing, Dr. Nazanin Taylor in [place]. The patient stated that he was referred to her for thrombocytopenia and leukopenia. The workup revealed enlarged spleen. He was told that nothing needs to be done except observation. Those records are not available. The patient has psychiatric disorder and he had suicidal ideation. With that he was he was referred to the emergency room yesterday. The patient is now admitted to the Psych Unit due to suicidal ideation. His CBC showed a white count of 1.7, hemoglobin of 13.4, platelet count is 41. The differential count is normal except the absolute neutrophil count is 1100 and absolute lymphocyte count is 500. Due to the leukopenia and thrombocytopenia, I have been asked to see him. The patient denies any fever. He denies any bleeding episodes. He denies any specific symptoms. PAST MEDICAL HISTORY 1. Metabolic syndrome. 2. Hypertension. 3. Anxiety depression. 4. Schizophrenia. 5. Hypercholesterolemia. 6. Gastroesophageal reflux disease. 7. Hypertension. PAST SURGICAL HISTORY Cholecystectomy. ALLERGIES None. MEDICATIONS 1. Diovan 2. Carafate. 3. Seroquel. 4. Protonix. 5. Nystatin. 6. Statin. 7. Hydrochlorothiazide. 8. Celexa. 9. Alisa. 10. Trazodone. 11. Cerave. 12. Hydroxyzine. 13. Flexeril. FAMILY HISTORY The patient does not know about his family history. SOCIAL HISTORY The patient is single. He used to smoke cigarettes; quit 4 years ago. He does not drink alcohol. The patient is blind and unemployed. PHYSICAL EXAMINATION GENERAL: This is a well-developed male in no apparent distress. VITAL SIGNS: Temperature is 98, heart rate is 90, blood pressure 148/80, O2 saturation is 98% on room air. HEENT: The patient is blind by . No oral lesions are noted. NECK: No lymphadenopathy. LUNGS: Clear. No wheezing, rhonchi or rales. HEART: Regular rate and rhythm. Abdomen is distended. Unable to feel for the liver and spleen due to the obesity. EXTREMITIES: No pedal edema. NEUROLOGY: Awake, alert, oriented x 3. SKIN: No significant lesions are noted. ASSESSMENT 1. Leukopenia and thrombocytopenia. 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 2. Schizophrenia with psychiatric history of anxiety depression. The patient is now admitted to the hospital for suicidal ideation.. PLAN I have reviewed his available records and I have discussed with the patient regarding the leukopenia and thrombocytopenia. I was able to review with his previous lab results on the EMR. The patient has chronic leukopenia dating back to February of 2011, so for the last 6 years he has leukopenia and he has not had any major infection. The patient also has thrombocytopenia dating back to 2010. The patient has not had any major bleeding since then. Although his platelet count is coming down, in July of this year his platelet count was 42 and yesterday his platelet count was 41, so it is pretty much stable. The patient already has been evaluated by a sr. manager marketing, Dr. Nazanin Taylor at [facility]. According to the patient he was told that his platelets and white count are low due to the enlarged spleen. We do not have any of those records available. My recommendation is to my recommendation is to get the CAT scan of the abdomen and pelvis to evaluate for the hypersplenism. I was able to review his previous radiological studies. The last time he had a CAT scan was eight years ago in 2008 which did not show any evidence of enlarged spleen. I will also order the B12, folate and iron studies to rule out the possibility of nutritional deficiency as a cause of leukopenia and thrombocytopenia. I highly doubt that he has those since he has chronic leukopenia and chronic thrombocytopenia dating back to 2010. He has these had these abnormalities for the past 6 years according to the EMR at [place]. If the CAT scan shows enlarged spleen, then I will recommend a bone marrow aspirate and biopsy to evaluate for possible lymphoma. This was discussed with the patient and he has agreed with that. I was reviewing his pathology report on the EMR. The patient had cholecystectomy and liver biopsy in December 2007. The pathology report showed that he has mild chronic cholecystitis. However, the liver biopsy which shows the possibility of primary biliary cirrhosis. The patient is reportedly seriologically positive for mitochondrial antibodies. The patient possibility could have primary biliary cirrhosis which certainly can cause hypersplenism. He had a hepatitis panel done in July of 2016 which was negative. STANLEY is negative. Antimitochondrial antibodies are positive 37.7. I recommend to get GI consult for the cirrhosis if the patient has not been evaluated by mat machine tender in the past. Further recommendations based on his hospital stay. Thank you for asking my opinion. Marialuisa Song MD /SSB /11:38 PM /8:28 AM
[2017-03-11] MEDS: TRIAMCINOLONE ACETONIDE 0.1% CREAM 15 GM TOPICAL SCH ×2 (09:00→21:00)
[2017-03-11] MEDS: REMOVE OLD PATCH T-DERMAL SCH (09:00)
[2017-03-11] MEDS: NICOTINE 21 MG/24 HR PATCH T-DERMAL SCH (09:00)
[2017-03-11] MEDS: NYSTATIN 100,000 UNIT/GM CREAM 15 GM TOPICAL SCH ×2 (09:00→21:00)
[2017-03-11] MEDS: PANTOPRAZOLE SOD 20 MG DELAYED RELEASE TAB PO SCH (09:13)
[2017-03-11] MEDS: ACETAMINOPHEN 325 MG TAB PO PRN ×2 (09:13→17:17)
[2017-03-11] MEDS: PREGABALIN 75 MG CAP PO SCH (09:14)
[2017-03-11] MEDS: CYCLOBENZAPRINE HCL 10 MG TAB PO SCH ×2 (09:14→21:22)
[2017-03-11] MEDS: DOCUSATE SODIUM 50 MG/SENNA 8.6 MG TAB PO SCH ×2 (09:14→21:22)
[2017-03-11] MEDS: VALSARTAN 160 MG TAB PO SCH (09:14)
[2017-03-11] MEDS: CITALOPRAM HYDROBROMIDE 40 MG TAB PO SCH (09:15)
[2017-03-11] MEDS: THIAMINE HCL 100 MG TAB PO SCH (09:15)
[2017-03-11] MEDS: HYDROCHLOROTHIAZIDE 12.5 MG CAP PO SCH (09:15)
[2017-03-11 09:36] LABS: AUTOMATED NEUTROPHIL # 0.9 TH/MM3 (1.8-7.7); BASOPHIL % 0.6 % (0.0-2.0); EOSINOPHIL % 1.4 % (0.0-4.0); HEMATOCRIT 40.2 % (39.0-51.0); LYMPH % 28.9 % (9.0-44.0); LYMPHOCYTE # 0.4 TH/MM3 (1.0-4.8); MEAN CELL VOLUME 90.4 FL (80.0-100.0); MEAN CORPUSCULAR HEMOGLOBIN 30.7 PG (27.0-34.0); MONO % 7.8 % (0.0-8.0); NEUT % 61.3 % (16.0-70.0); PLATELET COUNT 37 TH/MM3 (150-450); RED BLOOD COUNT 4.44 MIL/MM3 (4.50-5.90); RED CELL DISTRIBUTION WIDTH 15.1 % (11.6-17.2); WHITE BLOOD COUNT 1.5 TH/MM3 (4.0-11.0)
[2017-03-11 09:44] LABS: HEMO FLAGS AUTO DIFF; REVIEW FLAG FINAL
[2017-03-11 10:00] LABS: ANION GAP 4 MEQ/L (5-15); AST (GOT) 28 U/L (15-37); BICARBONATE 28.1 MEQ/L (21.0-32.0); BLOOD UREA NITROGEN 11 MG/DL (7-18); CHLORIDE 102 MEQ/L (98-107); GLOMERULAR FILTRATION RATE 103 ML/MIN (>89); POTASSIUM 4.4 MEQ/L (3.5-5.1); SODIUM (NA) 134 MEQ/L (136-145)
[2017-03-11 10:29] LABS: ALKALINE PHOSPHATASE 149 U/L (45-117); ALT (GPT) 43 U/L (12-78); FERRITIN 311 NG/ML (26-388); HDL CHOLESTEROL 28.5 MG/DL (40.0-60.0); LDL CHOLESTEROL 9 MG/DL (0-99); TOTAL BILIRUBIN ADULT 0.9 MG/DL (0.2-1.0); TRANSFERRIN IRON PROFILE 199 MG/DL (200-360)
[2017-03-11 11:17] LABS: BANDS 5 % (0-6); EOSINOPHILS 1 % (0-4); NEUTROPHIL # MANUAL DIFF 0.9 TH/MM3 (1.8-7.7); POLYS (SEG NEUTROPHILS) 53 % (16-70); WBC DIFF SAMPLE 100
[2017-03-11 11:18] LABS: PLATELET ESTIMATE SMEAR LOW (NORMAL); PLATELET MORPHOLOGY NORMAL (NORMAL); SCAN/DIFF FINAL DIFF MANUAL
--- NOTE | 2017-03-11 12:29 | HHI.HP ---
Provisional Diagnosis Admission Date Mar 10, 2017 at 10:13 [place] I. Schizoaffective disorder [place] II. Intellectual disability [place] III. HTN, GERD, HLD, metabolic syndrome, blind since , hx of leukopenia and thrombocytopenia [place] IV. limited social support, chronic mental illness [place] V. 35 Certification of Person's Competence To Provide Express and Informed Consent I have personally examined Byron Toth , a person being served at [facility] on, Mar 11, 2017 12:28. Express and informed consent means consent voluntarily given in writing, by a competent person, after sufficient explanation and disclosure of the subject matter involved to enable the person to make a knowing and willful decision without any element of force, fraud, deceit, duress, or other form of constraint or coercion. This person is 18 years of age or older, is not now known to be incompetent to consent to treatment with a guardian advocate, and does not have a health care surrogate or proxy currently making medical treatment decisions. I have found this person to be one of the following: [x] Competent to provide express and informed consent, as defined above, for voluntary admission to this facility and is competent to provide express and informed consent for treatment. He/she has the consistent capacity to make well reasoned, willful, and knowing decisions concerning his or her medical or mental health treatment. The person fully and consistently understands the purpose of the admission for examination/placement and is fully capable of personally exercising all rights assured under [place] Incompetent to provide express and informed consent to voluntary admission, and this is incompetent to provide express and informed consent to treatment. The person must be transferred to involuntary status and a petition for a guardian advocate filed with the Circuit Court. [] Refusing to provide express and informed consent to voluntary admission but is competent to provide express and informed consent for treatment. The person must be discharged or transferred to involuntary status. Form shall be completed within 24 hours of a person's arrival at the receiving facility and filed in the clinical record of each person: 1. Admitted on a voluntary basis 2. Permitted to provide express and informed consent to his/her own treatment 3. Allowed to transfer from involuntary to voluntary status 4. Prior to permitting a person to consent to his or her own treatment after having been previously found incompetent to consent to treatment. History of Present Illness Capacity: Has Capacity HPI Patient is a 36 y/o man, single, domiciled in a intermediate, unemployed on [employer], past psychiatric history of schizophrenia, intellectual deficit, previous psychiatric admissions, reported previous suicide attempts, denies self injurious behavior, past medical history of HTN, GERD, HLD, metabolic syndrome, blindness since and recent splenomegaly, who was admitted to the inpatient psychiatry unit under [place] for suicidal ideations, attempting to bang his head against the wall in the context of command auditory hallucinations to kill himself and depressive symptoms. Discussion with nursing staff, it was reported that the patient noted to be pleasant and cooperative with staff. Patient was seen on the inpatient psychiatry unit lying on hospital bed, calm and cooperative with interview. Patient states that he was having command auditory hallucinations telling him to hurt and kill himself which he had started to bang his head against the wall. He reports that he has been feeling depressed lately, worsening for the past week but unable to identifying recent stressor aside from missing his family who live out of state (siblings in [place]), He states that since being brought to the hospital the voices have been not that bad currently denies SI, HI, AVH or delusions at this time. Past psychiatric history: previous psychiatric diagnosis of schizophrenia and depression as per patient, intellectual disability, multiple psychiatric admissions (last in July 2016 in [place]), reports couple of previous suicide attempts (last in 2008 which he was stopped from attempting to cut himself) denies self injurious behavior. Reports being followed by FACT team. Substance use history: denies Past medical history: HTN, GERD, HLD, metabolic syndrome, blind since , recently with splenomegaly along with leukopenia and thrombocytopenia. Allergies: NKDA Social history: single, no children, living in intermediate over one year, unemployed on [employer], family lives in [place], highest education: 2nd grade was in special education classes. Review of Systems Except as stated in HPI: all other systems reviewed are Neg Past Psych History Violence risk - others (6 mos) low Violence risk - self (6 mos) moderate Substance Abuse History Drugs/Alcohol past 12 months denies use of any illegal substance Past Family Social History Coded Allergies: No Known Allergies (Verified , 03/09/17) Active Scripts Valsartan (Diovan) 160 Mg Tab, 160 MG PO DAILY for health, #30 TAB 0 Refills Prov:Justyn Stanley MD 08/09/16 Sucralfate (Carafate) 1 Gm Tab, 1 GM PO HS for health, #30 TAB 0 Refills Prov:Justyn Stanley MD 08/09/16 Quetiapine (Seroquel) 400 Mg Tab, 400 MG PO HS for health, #30 TAB 0 Refills Prov:Justyn Stanley MD 08/09/16 Pantoprazole (Protonix) 20 Mg Tab, 20 MG PO DAILY for health, #30 TAB 0 Refills Prov:Justyn Stanley MD 08/09/16 Nystatin Topical (Nystatin Topical) 100,000 unit/gm Cream, 1 APPLIC TOPICAL Q12HR for health, #1 TUBE 0 Refills Prov:Justyn Stanley MD 08/09/16 Hydrochlorothiazide (Hydrochlorothiazide) 12.5 Mg Cap, 12.5 MG PO DAILY for health, #30 CAP 0 Refills Prov:Justyn Stanley MD 08/09/16 Citalopram (Celexa) 40 Mg Tab, 40 MG PO DAILY for health, #30 TAB 0 Refills Prov:Justyn Stanley MD 08/09/16 Reported Medications Pregabalin (Lyrica) 75 Mg Cap, 75 MG PO DAILY, #30 CAP 0 Refills 03/09/17 Trazodone (Trazodone) 100 Mg Tablet, 200 MG PO HS for Control Depression, #30 TAB 0 Refills 03/09/17 Sennosides-Docusate Sodium (Doc-Q-Lax) 8.6-50 Mg Tab, 1 TAB PO BID for Prevent Constipation, #30 TAB 0 Refills 03/09/17 Thiamine (Vitamin B-1) 100 Mg Tab, 100 MG PO DAILY for Nutritional Supplement, TAB 0 Refills 03/09/17 Emollient (Cerave) 1 Cre Cre, TOP BID for ALL OVER BODY 07/27/16 [Escitolopram] No Conflict Check, 10 MG PO DAILY 07/27/16 Triamcinolone (Bulk) (Triamcinolone) 1 Pow Pow, 0.1 % TOP BID for Rash 07/27/16 Hydroxyzine HCl (Hydroxyzine HCl) 25 Mg Tab, 25 MG PO HS, TAB 0 Refills 07/27/16 Cyclobenzaprine (Flexeril) 5 Mg Tab, 5 MG PO BID for Muscle Spasm, #90 TAB 0 Refills 07/27/16 Discontinued Reported Medications Buspirone (Buspirone) 10 Mg Tab, 10 MG PO BID for Anxiety, TAB 0 Refills 07/27/16 Current Medications Medications (Trade) Dose Ordered Sig/Lobito Route Start Time Stop Time Status Last Admin (CeleXA) 40 mg DAILY PO 03/11/17 09:00 03/11/17 09:15 (Flexeril) 5 mg BID PO 03/10/17 21:00 03/11/17 09:14 (Microzide) 12.5 mg DAILY PO 03/11/17 09:00 03/11/17 09:15 (Atarax) 25 mg HS PO 03/10/17 21:00 03/10/17 23:12 (Mycostatin Cream) 1 applic Q12HR TOPICAL 03/10/17 21:00 (Protonix) 20 mg DAILY PO 03/11/17 09:00 03/11/17 09:13 (Lyrica) 75 mg DAILY PO 03/11/17 09:00 03/11/17 09:14 (Carrie-Colace) 1 tab BID PO 03/10/17 21:00 03/11/17 09:14 (Carafate) 1 gm HS PO 03/10/17 21:00 03/10/17 23:13 (Vitamin B1) 100 mg DAILY PO 03/11/17 09:00 03/11/17 09:15 (Diovan) 160 mg DAILY PO 03/11/17 09:00 03/11/17 09:14 (Desyrel) 200 mg HS PO 03/10/17 21:00 03/10/17 23:11 (Ativan) 1 mg Q6H PRN PO 03/10/17 10:15 (Ativan Inj) 1 mg Q6H PRN IM 03/10/17 10:15 (Tylenol) 650 mg Q4H PRN PO 03/10/17 10:15 03/11/17 09:13 (Milk Of Magnesia Liq) 30 ml DAILY PRN PO 03/10/17 10:15 (Mag-Al Plus Susp Liq) 30 ml Q6H PRN PO 03/10/17 10:15 (Habitrol 21 Mg Patch.24 Hr) 1 patch DAILY T-DERMAL 03/11/17 09:00 (Cogentin) 1 mg Q12H PRN PO 03/10/17 10:15 (Cogentin Inj) 1 mg Q12H PRN IM 03/10/17 10:15 Miscellaneous Information 1 DAILY T-DERMAL 03/11/17 09:00 (Aristocort 0.1% Cream) 1 applic BID TOPICAL 03/10/17 21:00 Family History unknown Social History single, no children, living in intermediate over one year, unemployed on [employer], family lives in [place], highest education: 2nd grade was in special education classes. Patient's Strengths (min. 2) verbal and communicative Physical Exam Patient found to be in no acute distress, no noted gross motor abnormalities aside from bilateral horizontal nystagmus, no tremors of EPS, no noted psychomotor agitation of retardation. Vital Signs Vital Signs Date Time Temp Pulse Resp B/P (MAP) Pulse Ox O2 Delivery O2 Flow Rate FiO2 03/11/17 06:19 97.7 84 16 129/76 (93) 98 03/10/17 10:35 Room Air Lab Results labs reviewed Test 03/11/17 08:35 White Blood Count 1.5 TH/MM3 Red Blood Count 4.44 MIL/MM3 Hemoglobin 13.6 GM/DL Hematocrit 40.2 % Mean Corpuscular Volume 90.4 FL Mean Corpuscular Hemoglobin 30.7 PG Mean Corpuscular Hemoglobin Concent 34.0 % Red Cell Distribution Width 15.1 % Platelet Count 37 TH/MM3 Mean Platelet Volume 6.2 FL Neutrophils (%) (Auto) 61.3 % Lymphocytes (%) (Auto) 28.9 % Monocytes (%) (Auto) 7.8 % Eosinophils (%) (Auto) 1.4 % Basophils (%) (Auto) 0.6 % Neutrophils # (Auto) 0.9 TH/MM3 Lymphocytes # (Auto) 0.4 TH/MM3 Monocytes # (Auto) 0.1 TH/MM3 Eosinophils # (Auto) 0.0 TH/MM3 Basophils # (Auto) 0.0 TH/MM3 CBC Comment AUTO DIFF Differential Total Cells Counted 100 Neutrophils % (Manual) 53 % Band Neutrophils % 5 % Lymphocytes % 34 % Monocytes % 7 % Eosinophils % 1 % Neutrophils # (Manual) 0.9 TH/MM3 Differential Comment FINAL DIFF MANUAL Atypical Lymphocytes % Platelet Estimate LOW Platelet Morphology Comment NORMAL Red Cell Morphology Comment NORMAL Reticulocyte Count 3.0 % Absolute Reticulocyte Count 134.9 MIL/L Blood Urea Nitrogen 11 MG/DL Creatinine 0.84 MG/DL Random Glucose 306 MG/DL Total Protein 7.9 GM/DL Albumin 3.6 GM/DL Calcium Level 8.4 MG/DL Alkaline Phosphatase 149 U/L Aspartate Amino Transf (AST/SGOT) 28 U/L Alanine Aminotransferase (ALT/SGPT) 43 U/L Total Bilirubin 0.9 MG/DL Sodium Level 134 MEQ/L Potassium Level 4.4 MEQ/L Chloride Level 102 MEQ/L Carbon Dioxide Level 28.1 MEQ/L Anion Gap 4 MEQ/L Estimat Glomerular Filtration Rate 103 ML/MIN Iron Level 94 MCG/DL Total Iron Binding Capacity 279 MCG/DL Percent Iron Saturation 33.7 % Ferritin 311 NG/ML Triglycerides Level 238 MG/DL Cholesterol Level 85 MG/DL LDL Cholesterol 9 MG/DL HDL Cholesterol 28.5 MG/DL Cholesterol/HDL Ratio 2.98 RATIO Vitamin B12 Level 453 PG/ML Folate 18.4 NG/ML Mental Status Examination Appearance Appears stated age, in [facility], lying on hospital bed, calm and cooperative with interview Speech: Unremarkable Orientation: Person, Place Memory: Unremarkable Thought Process: Linear Thought Content: Other (concrete) Language fluent and spontaneous Fund of Knowledge poor Hallucination Type: Auditory Attention and Concentration: Good Suicidal Ideation: Yes (but denies at time of interview) Previous Suicide Attempts: Yes Homicidal Ideation: No Previous Homicide Attempts: No Insight: Poor Judgment: Poor Affect: Other (constricted) Mood: Sad Assessment & Plan Problem List: (1) Schizoaffective disorder, depressive type ICD Codes: F25.1 - Schizoaffective disorder, depressive type Status: Acute Assessment & Plan Estimated LOS: 5-7 days. Patient is a 36 y/o man, single, domiciled in a intermediate, unemployed on SSI, past psychiatric history of schizophrenia, previous psychiatric admissions, reported previous suicide attempts, denies self injurious behavior who was admitted to the inpatient psychiatry unit under [place] for suicidal ideations, attempting to bang his head against the wall in the context of command auditory hallucinations to kill himself and depressive symptoms. Patient will be continued on citalopram 40mg PO daily and trazodone 200mg PO HS but will hold on quetiapine due to his current low WBC and platelet count as there is a possibility of worsening of decreased cell count with quetiapine until consult with hematology/oncology. Recommendations as per primary medical team with continued work up for recent CBC results. Will continue to monitor mood and behavior as well as medication response and possible ADRs. Patient to continue recommendations as per primary medical team. Discharge planning in progress. Claudy Friend MD Mar 11, 2017 12:29
--- NOTE | 2017-03-11 13:32 | PD.ONC.PN ---
Subjective Subjective Remarks Afebrile overnight. Patient reports feeling depressed. Denies pain or bleeding. Objective Data Date Time Temp Pulse Resp B/P (MAP) Pulse Ox O2 Delivery O2 Flow Rate FiO2 03/11/17 06:19 97.7 84 16 129/76 (93) 98 Result Diagram: 03/11/17 0835 03/11/17 0835 Laboratory Results Laboratory Tests Test 03/11/17 08:35 White Blood Count 1.5 TH/MM3 Red Blood Count 4.44 MIL/MM3 Hemoglobin 13.6 GM/DL Hematocrit 40.2 % Mean Corpuscular Volume 90.4 FL Mean Corpuscular Hemoglobin 30.7 PG Mean Corpuscular Hemoglobin Concent 34.0 % Red Cell Distribution Width 15.1 % Platelet Count 37 TH/MM3 Mean Platelet Volume 6.2 FL Neutrophils (%) (Auto) 61.3 % Lymphocytes (%) (Auto) 28.9 % Monocytes (%) (Auto) 7.8 % Eosinophils (%) (Auto) 1.4 % Basophils (%) (Auto) 0.6 % Neutrophils # (Auto) 0.9 TH/MM3 Lymphocytes # (Auto) 0.4 TH/MM3 Monocytes # (Auto) 0.1 TH/MM3 Eosinophils # (Auto) 0.0 TH/MM3 Basophils # (Auto) 0.0 TH/MM3 CBC Comment AUTO DIFF Differential Total Cells Counted 100 Neutrophils % (Manual) 53 % Band Neutrophils % 5 % Lymphocytes % 34 % Monocytes % 7 % Eosinophils % 1 % Neutrophils # (Manual) 0.9 TH/MM3 Differential Comment FINAL DIFF MANUAL Atypical Lymphocytes % Platelet Estimate LOW Platelet Morphology Comment NORMAL Red Cell Morphology Comment NORMAL Reticulocyte Count 3.0 % Absolute Reticulocyte Count 134.9 MIL/L Blood Urea Nitrogen 11 MG/DL Creatinine 0.84 MG/DL Random Glucose 306 MG/DL Total Protein 7.9 GM/DL Albumin 3.6 GM/DL Calcium Level 8.4 MG/DL Alkaline Phosphatase 149 U/L Aspartate Amino Transf (AST/SGOT) 28 U/L Alanine Aminotransferase (ALT/SGPT) 43 U/L Total Bilirubin 0.9 MG/DL Sodium Level 134 MEQ/L Potassium Level 4.4 MEQ/L Chloride Level 102 MEQ/L Carbon Dioxide Level 28.1 MEQ/L Anion Gap 4 MEQ/L Estimat Glomerular Filtration Rate 103 ML/MIN Iron Level 94 MCG/DL Total Iron Binding Capacity 279 MCG/DL Percent Iron Saturation 33.7 % Ferritin 311 NG/ML Triglycerides Level 238 MG/DL Cholesterol Level 85 MG/DL LDL Cholesterol 9 MG/DL HDL Cholesterol 28.5 MG/DL Cholesterol/HDL Ratio 2.98 RATIO Vitamin B12 Level 453 PG/ML Folate 18.4 NG/ML Administered Medications Medications (Trade) Dose Ordered Sig/Lobito Route PRN Reason Start Time Stop Time Status Last Admin Dose Admin Citalopram Hydrobromide (CeleXA) 40 mg DAILY PO 03/11/17 09:00 03/11/17 09:15 Cyclobenzaprine HCl (Flexeril) 5 mg BID PO 03/10/17 21:00 03/11/17 09:14 Hydrochlorothiazide (Microzide) 12.5 mg DAILY PO 03/11/17 09:00 03/11/17 09:15 Hydroxyzine HCl (Atarax) 25 mg HS PO 03/10/17 21:00 03/10/17 23:12 Pantoprazole Sodium (Protonix) 20 mg DAILY PO 03/11/17 09:00 03/11/17 09:13 Pregabalin (Lyrica) 75 mg DAILY PO 03/11/17 09:00 03/11/17 09:14 Senna/Docusate Sodium (Carrie-Colace) 1 tab BID PO 03/10/17 21:00 03/11/17 09:14 Sucralfate (Carafate) 1 gm HS PO 03/10/17 21:00 03/10/17 23:13 Thiamine HCl (Vitamin B1) 100 mg DAILY PO 03/11/17 09:00 03/11/17 09:15 Valsartan (Diovan) 160 mg DAILY PO 03/11/17 09:00 03/11/17 09:14 Trazodone HCl (Desyrel) 200 mg HS PO 03/10/17 21:00 03/10/17 23:11 Acetaminophen (Tylenol) 650 mg Q4H PRN PO Pain 1-5 or Temp >101F 03/10/17 10:15 03/11/17 09:13 Objective Remarks GENERAL: Young man, lying in bed in nad. SKIN: Warm and dry. HEAD: Normocephalic. EYES: o injection or drainage. NECK: Supple, trachea midline. CARDIOVASCULAR: Regular rate and rhythm. RESPIRATORY: Breath sounds equal bilaterally. No accessory muscle use. GASTROINTESTINAL: Abdomen distended but non-tender EXTREMITIES: No cyanosis NEUROLOGICAL: awake and alert, normal speech Assessment/Plan Problem List: (1) Bicytopenia ICD Codes: D75.89 - Other specified diseases of blood and blood-forming organs Plan: 03/11: CT shows splenomegaly. will ask invasive radiology to perform bone marrow biopsy under sedation --has splenomegaly of unclear etiology-->has h/o primary biliary cirrhosis, could be cause --will obtain bone marrow biopsy. --has chronic leukopenia and thrombocytopenia dating back to 2010 -- has been evaluated by a ict account manager, Dr. Nazanin Taylor at [facility]. According to the patient he was told that his platelets and white count are low due to the enlarged spleen. We do not have any of those records available. --B12/folate WNL --iron studies show no deficiency --hepatitis panel (2016) negative Assessment 36y/o male admitted with depression with SI. Hematology consulted for leukopenia and thrombocytopenia. history of metabolic syndrome, hypercholesterolemia, depression, schizophrenia, gastroesophageal reflux disease, hypertension and splenomegaly. Attending Statement no new c/o No deficiency of B12 ,Folate or iron CT A/P = enlarge spleen. Consult IR for BM bx under sedation. The exam, history, and the medical decision-making described in the above note were completed with the assistance of the mid-level provider. I reviewed and agree with the findings presented. I attest that I had a [id number] encounter with the patient on the same day, and personally performed and documented my assessment and findings in the medical record. Lilia Vasquez Mar 11, 2017 13:32 Martin Song MD Mar 12, 2017 01:01
[2017-03-11 17:34] VITALS: BP 136/81; PULSE 89; RESP 18; TEMP 99.7; O2SAT 98
[2017-03-11 18:02] LABS: HEMOGLOBIN A1a 0.8 %; HEMOGLOBIN A1b 0.8 %; HEMOGLOBIN Ao 82.9 %; HEMOGLOBIN LA1C 3.2 %; HEMOGLOBIN P3 4.1 %
[2017-03-11] MEDS ORDERED: QUEtiapine FUMARATE 100 MG TAB PO SCH (21:00)
[2017-03-11] MEDS: traZODone HCL 100 MG TAB PO SCH (21:21)
[2017-03-11] MEDS: SUCRALFATE 1 GM TAB PO SCH (21:22)
[2017-03-11] MEDS: hydrOXYzine HCL 25 MG TAB PO SCH (21:22)
[2017-03-12 00:45] VITALS: BP 163/88; PULSE 76; RESP 18; TEMP 97.9; O2SAT 99
[2017-03-12] MEDS: ONDANSETRON ODT 4 MG TAB PO PRN ×2 (01:31→14:11)
[2017-03-12 06:19] VITALS: BP 122/70; PULSE 80; RESP 18; TEMP 98.3; O2SAT 98
[2017-03-12] MEDS: PANTOPRAZOLE SOD 20 MG DELAYED RELEASE TAB PO SCH (08:51)
[2017-03-12] MEDS: DOCUSATE SODIUM 50 MG/SENNA 8.6 MG TAB PO SCH ×2 (08:52→20:51)
[2017-03-12] MEDS: THIAMINE HCL 100 MG TAB PO SCH (08:52)
[2017-03-12] MEDS: CITALOPRAM HYDROBROMIDE 40 MG TAB PO SCH (08:52)
[2017-03-12] MEDS: CYCLOBENZAPRINE HCL 10 MG TAB PO SCH ×2 (08:52→20:50)
[2017-03-12] MEDS: PREGABALIN 75 MG CAP PO SCH (08:54)
[2017-03-12] MEDS: HYDROCHLOROTHIAZIDE 12.5 MG CAP PO SCH (08:54)
[2017-03-12] MEDS: NYSTATIN 100,000 UNIT/GM CREAM 15 GM TOPICAL SCH ×2 (08:56→20:52)
[2017-03-12] MEDS: TRIAMCINOLONE ACETONIDE 0.1% CREAM 15 GM TOPICAL SCH ×2 (08:57→20:52)
[2017-03-12] MEDS: NICOTINE 21 MG/24 HR PATCH T-DERMAL SCH (08:58)
[2017-03-12] MEDS: REMOVE OLD PATCH T-DERMAL SCH (09:00)
[2017-03-12] MEDS: VALSARTAN 160 MG TAB PO SCH (09:00)
--- NOTE | 2017-03-12 12:04 | PD.ONC.PN ---
Subjective Subjective Remarks Afebrile overnight. Patient felt somewhat nauseated overnight and vomited twice. He is feeling somewhat better now, although still fatigued and depressed. Objective Data Date Time Temp Pulse Resp B/P (MAP) Pulse Ox O2 Delivery O2 Flow Rate FiO2 03/12/17 06:19 98.3 80 18 122/70 (87) 98 03/12/17 00:45 97.9 76 18 163/88 (113) 99 03/11/17 17:34 99.7 89 18 136/81 (99) 98 Result Diagram: 03/11/17 0835 03/11/17 0835 Administered Medications Medications (Trade) Dose Ordered Sig/Lobito Route PRN Reason Start Time Stop Time Status Last Admin Dose Admin Citalopram Hydrobromide (CeleXA) 40 mg DAILY PO 03/11/17 09:00 03/12/17 08:52 Cyclobenzaprine HCl (Flexeril) 5 mg BID PO 03/10/17 21:00 03/12/17 08:52 Hydrochlorothiazide (Microzide) 12.5 mg DAILY PO 03/11/17 09:00 03/12/17 08:54 Hydroxyzine HCl (Atarax) 25 mg HS PO 03/10/17 21:00 03/11/17 21:22 Nystatin (Mycostatin Cream) 1 applic Q12HR TOPICAL 03/10/17 21:00 03/12/17 08:56 Pantoprazole Sodium (Protonix) 20 mg DAILY PO 03/11/17 09:00 03/12/17 08:51 Pregabalin (Lyrica) 75 mg DAILY PO 03/11/17 09:00 03/12/17 08:54 Senna/Docusate Sodium (Carrie-Colace) 1 tab BID PO 03/10/17 21:00 03/12/17 08:52 Sucralfate (Carafate) 1 gm HS PO 03/10/17 21:00 03/11/17 21:22 Thiamine HCl (Vitamin B1) 100 mg DAILY PO 03/11/17 09:00 03/12/17 08:52 Valsartan (Diovan) 160 mg DAILY PO 03/11/17 09:00 03/12/17 09:00 Trazodone HCl (Desyrel) 200 mg HS PO 03/10/17 21:00 03/11/17 21:21 Acetaminophen (Tylenol) 650 mg Q4H PRN PO Pain 1-5 or Temp >101F 03/10/17 10:15 03/11/17 17:17 Triamcinolone Acetonide (Aristocort 0.1% Cream) 1 applic BID TOPICAL 03/10/17 21:00 03/12/17 08:57 Ondansetron HCl (Zofran Odt) 4 mg Q4H PRN PO nausea 03/12/17 01:30 03/12/17 01:31 Objective Remarks GENERAL: Young man, lying supine in bed. He is sleeping on approach SKIN: Warm and dry. HEAD: Normocephalic. EYES: no injection or drainage. NECK: Supple, trachea midline. CARDIOVASCULAR: Regular rate and rhythm. RESPIRATORY: Breath sounds equal bilaterally. No accessory muscle use. GASTROINTESTINAL: Abdomen distended. no point tenderness. EXTREMITIES: No cyanosis NEUROLOGICAL: awake and alert, normal speech Assessment/Plan Problem List: (1) Bicytopenia ICD Codes: D75.89 - Other specified diseases of blood and blood-forming organs Plan: 03/12: bone marrow biopsy moved to tomorrow d/t patients GI illness and non-fasting state (ate breakfast). will defer to hospitalist for management of GI upset. monitor CBC, check coags and CMP --has splenomegaly of unclear etiology-->has h/o primary biliary cirrhosis, could be cause --will obtain bone marrow biopsy. --has chronic leukopenia and thrombocytopenia dating back to 2010 -- has been evaluated by a tape fastener machine operator, Dr. Nzaanin Taylor at [facility]. According to the patient he was told that his platelets and white count are low due to the enlarged spleen. We do not have any of those records available. --B12/folate WNL --iron studies show no deficiency --hepatitis panel (2016) negative Assessment 36y/o male admitted with depression with SI. Hematology consulted for leukopenia and thrombocytopenia. history of metabolic syndrome, hypercholesterolemia, depression, schizophrenia, gastroesophageal reflux disease, hypertension and splenomegaly. Attending Statement no c/o pancytopenia persist. BM bx with IR tomorrow. The exam, history, and the medical decision-making described in the above note were completed with the assistance of the mid-level provider. I reviewed and agree with the findings presented. I attest that I had a [id number] encounter with the patient on the same day, and personally performed and documented my assessment and findings in the medical record. Lilia Vasquez Mar 12, 2017 12:04 Martin Song MD Mar 12, 2017 18:22
[2017-03-12 16:01] LABS: AUTOMATED NEUTROPHIL # 1.2 TH/MM3 (1.8-7.7); BASOPHIL % 0.7 % (0.0-2.0); EOSINOPHIL % 0.4 % (0.0-4.0); HEMATOCRIT 42.1 % (39.0-51.0); LYMPH % 22.8 % (9.0-44.0); LYMPHOCYTE # 0.4 TH/MM3 (1.0-4.8); MEAN CELL VOLUME 90.2 FL (80.0-100.0); MEAN CORPUSCULAR HEMOGLOBIN 30.4 PG (27.0-34.0); MEAN CORPUSCULAR HGB CONC 33.7 % (32.0-36.0); NEUT % 69.1 % (16.0-70.0); PLATELET COUNT 35 TH/MM3 (150-450); RED BLOOD COUNT 4.67 MIL/MM3 (4.50-5.90); RED CELL DISTRIBUTION WIDTH 15.2 % (11.6-17.2); WHITE BLOOD COUNT 1.7 TH/MM3 (4.0-11.0)
[2017-03-12 16:14] LABS: APTT (PATIENT) 32.9 SEC (24.3-30.1); INTERNATIONAL NORMALIZED RATIO 1.2 RATIO; PROTHROMBIN TIME - PATIENT 13.3 SEC (9.8-11.6)
[2017-03-12 16:17] LABS: ALKALINE PHOSPHATASE 129 U/L (45-117); ALT (GPT) 42 U/L (12-78); ANION GAP 3 MEQ/L (5-15); AST (GOT) 27 U/L (15-37); BICARBONATE 31.3 MEQ/L (21.0-32.0); BLOOD UREA NITROGEN 8 MG/DL (7-18); CHLORIDE 100 MEQ/L (98-107); GLOMERULAR FILTRATION RATE 118 ML/MIN (>89); HEMO FLAGS AUTO DIFF; SODIUM (NA) 134 MEQ/L (136-145)
--- NOTE | 2017-03-12 17:38 | HHI.PYPN ---
Subjective Remarks Patient seen for follow-up, chart reviewed. Patient was found lying on hospital bed asleep but able to wake up and engage in interview. Patient states that he has been feeling "a little sore from the vomiting last night" which nursing confirmed was once but not in abundant amount. He states that he has not felt nausea or have vomited again and has been able to eat well today. He states that his mood has been "good", feels that he is "a little better". He denies any suicidal ideations, last time being yesterday, currently denies any AH at this time. He reports being aware of the scheduled bone biopsy for recent leukopenia and thrombocytopenia along with splenomegaly. Review of Systems Except as stated in HPI: all other systems reviewed are Neg Objective Alert: Yes [place]: Person, Place, Date Mood: Calm Affect: Restricted (less so today) Memory Intact: Comment (intact) Hallucinations: Other (denies) Delusions: No Delusion Type: Other (denies) Suicidal: Ideation (denies) Homicidal: Ideation (denies) Insight/Judgment limited insight, fair impulse control and limited judgement Labs labs reviewed. Test 03/12/17 15:27 White Blood Count 1.7 TH/MM3 Red Blood Count 4.67 MIL/MM3 Hemoglobin 14.2 GM/DL Hematocrit 42.1 % Mean Corpuscular Volume 90.2 FL Mean Corpuscular Hemoglobin 30.4 PG Mean Corpuscular Hemoglobin Concent 33.7 % Red Cell Distribution Width 15.2 % Platelet Count 35 TH/MM3 Mean Platelet Volume 6.5 FL Neutrophils (%) (Auto) 69.1 % Lymphocytes (%) (Auto) 22.8 % Monocytes (%) (Auto) 7.0 % Eosinophils (%) (Auto) 0.4 % Basophils (%) (Auto) 0.7 % Neutrophils # (Auto) 1.2 TH/MM3 Lymphocytes # (Auto) 0.4 TH/MM3 Monocytes # (Auto) 0.1 TH/MM3 Eosinophils # (Auto) 0.0 TH/MM3 Basophils # (Auto) 0.0 TH/MM3 CBC Comment AUTO DIFF Prothrombin Time 13.3 SEC Prothromb Time International Ratio 1.2 RATIO Activated Partial Thromboplast Time 32.9 SEC Blood Urea Nitrogen 8 MG/DL Creatinine 0.75 MG/DL Random Glucose 246 MG/DL Total Protein 8.7 GM/DL Albumin 4.1 GM/DL Calcium Level 9.3 MG/DL Alkaline Phosphatase 129 U/L Aspartate Amino Transf (AST/SGOT) 27 U/L Alanine Aminotransferase (ALT/SGPT) 42 U/L Total Bilirubin 1.0 MG/DL Sodium Level 134 MEQ/L Potassium Level 4.0 MEQ/L Chloride Level 100 MEQ/L Carbon Dioxide Level 31.3 MEQ/L Anion Gap 3 MEQ/L Estimat Glomerular Filtration Rate 118 ML/MIN Vitals/IOs Vital Signs Date Time Temp Pulse Resp B/P (MAP) Pulse Ox O2 Delivery O2 Flow Rate FiO2 03/12/17 06:19 98.3 80 18 122/70 (87) 98 03/10/17 10:35 Room Air Assessment & Plan Problem List: (1) Schizoaffective disorder, depressive type ICD Codes: F25.1 - Schizoaffective disorder, depressive type Status: Acute Assessment & Plan Patient continues to endorse feeling depressed but denies any suicidal ideations today. Patient has bone biopsy tomorrow morning and will remain NPO after midnight for the same. Patient will continue treatment for now and will hold on restarting antipsychotic due to his current CBC values. Recommendations as per primary medical team. Discharge planning in progress. Justification for Cont. Inpt. At risk for further decompensation if at lower level of care. Claudy Friend MD Mar 12, 2017 17:38
[2017-03-12 17:44] LABS: BANDS 1 % (0-6); BASOPHILS 2 % (0-2); NEUTROPHIL # MANUAL DIFF 1.2 TH/MM3 (1.8-7.7); POLYS (SEG NEUTROPHILS) 69 % (16-70); WBC DIFF SAMPLE 100
[2017-03-12 17:46] LABS: PLATELET ESTIMATE SMEAR LOW (NORMAL); PLATELET MORPHOLOGY NORMAL (NORMAL); SCAN/DIFF FINAL DIFF MANUAL
[2017-03-12 18:47] VITALS: BP 160/87; PULSE 77; RESP 17; TEMP 98.2; O2SAT 97
[2017-03-12] MEDS: hydrOXYzine HCL 25 MG TAB PO SCH (20:49)
[2017-03-12] MEDS: traZODone HCL 100 MG TAB PO SCH (20:50)
[2017-03-12] MEDS: SUCRALFATE 1 GM TAB PO SCH (20:51)
--- NOTE | 2017-03-12 20:59 | EKG ---
Date Performed: 03/11/2017 Time Performed: 15:22:04 PTAGE: 36 years EKG: Sinus rhythm NORMAL ECG PREVIOUS TRACING : 03/17/2010 09.49 Compared to prior tracing no significant change DOCTOR: Neo Toussaint Interpretating Date/Time 03/12/2017 20:51:29
[2017-03-13 05:59] VITALS: BP 116/73; PULSE 85; RESP 16; TEMP 97.7
[2017-03-13] MEDS: CITALOPRAM HYDROBROMIDE 40 MG TAB PO SCH (08:30)
[2017-03-13] MEDS: VALSARTAN 160 MG TAB PO SCH (08:30)
[2017-03-13 08:31] LABS: AUTOMATED NEUTROPHIL # 1.5 TH/MM3 (1.8-7.7); BASOPHIL % 0.4 % (0.0-2.0); EOSINOPHIL % 0.6 % (0.0-4.0); HEMATOCRIT 41.9 % (39.0-51.0); LYMPH % 23.7 % (9.0-44.0); LYMPHOCYTE # 0.5 TH/MM3 (1.0-4.8); MEAN CELL VOLUME 89.6 FL (80.0-100.0); MEAN CORPUSCULAR HEMOGLOBIN 30.4 PG (27.0-34.0); MEAN CORPUSCULAR HGB CONC 33.9 % (32.0-36.0); MONO % 7.3 % (0.0-8.0); PLATELET COUNT 32 TH/MM3 (150-450); RED BLOOD COUNT 4.68 MIL/MM3 (4.50-5.90); RED CELL DISTRIBUTION WIDTH 15.4 % (11.6-17.2); WHITE BLOOD COUNT 2.2 TH/MM3 (4.0-11.0)
[2017-03-13] MEDS: CYCLOBENZAPRINE HCL 10 MG TAB PO SCH ×2 (08:31→21:19)
[2017-03-13] MEDS: PANTOPRAZOLE SOD 20 MG DELAYED RELEASE TAB PO SCH (08:31)
[2017-03-13] MEDS: DOCUSATE SODIUM 50 MG/SENNA 8.6 MG TAB PO SCH ×2 (08:32→21:18)
[2017-03-13] MEDS: PREGABALIN 75 MG CAP PO SCH (08:32)
[2017-03-13] MEDS: HYDROCHLOROTHIAZIDE 12.5 MG CAP PO SCH (08:32)
[2017-03-13 08:33] LABS: HEMO FLAGS AUTO DIFF
[2017-03-13] MEDS: THIAMINE HCL 100 MG TAB PO SCH (08:33)
[2017-03-13] MEDS: TRIAMCINOLONE ACETONIDE 0.1% CREAM 15 GM TOPICAL SCH ×2 (09:00→21:00)
[2017-03-13] MEDS: REMOVE OLD PATCH T-DERMAL SCH (09:00)
[2017-03-13] MEDS: NICOTINE 21 MG/24 HR PATCH T-DERMAL SCH (09:00)
[2017-03-13] MEDS: NYSTATIN 100,000 UNIT/GM CREAM 15 GM TOPICAL SCH ×2 (09:00→21:00)
[2017-03-13 09:01] LABS: ALT (GPT) 42 U/L (12-78); ANION GAP 5 MEQ/L (5-15); AST (GOT) 24 U/L (15-37); BLOOD UREA NITROGEN 9 MG/DL (7-18); CHLORIDE 101 MEQ/L (98-107); GLOMERULAR FILTRATION RATE 124 ML/MIN (>89); POTASSIUM 3.7 MEQ/L (3.5-5.1); SODIUM (NA) 135 MEQ/L (136-145)
[2017-03-13 09:04] LABS: ALKALINE PHOSPHATASE 109 U/L (45-117); TOTAL BILIRUBIN ADULT 1.1 MG/DL (0.2-1.0)
[2017-03-13 09:26] LABS: PLATELET ESTIMATE SMEAR LOW (NORMAL); PLATELET MORPHOLOGY NORMAL (NORMAL); SCAN/DIFF AUTO DIFF CONFIRMED
--- NOTE | 2017-03-13 11:36 | HHI.PR ---
Subjective Remarks No new complaints from the patient. Bone marrow biopsy planned for today. Thrombocytopenia and leukopenia are relatively stable. Objective Vital Signs Date Time Temp Pulse Resp B/P (MAP) Pulse Ox O2 Delivery O2 Flow Rate FiO2 03/13/17 05:59 97.7 85 16 116/73 (87) 03/12/17 18:47 98.2 77 17 160/87 (111) 97 Result Diagram: 03/13/17 0656 03/13/17 0656 Objective Remarks GENERAL: NAD, A&Ox3, obese HEAD: Normocephalic. NECK: Supple, trachea midline. No lymphadenopathy. EYES: No scleral icterus. No injection or drainage. Blindness. CARDIOVASCULAR: Regular rate and rhythm without murmurs, gallops, or rubs. RESPIRATORY: Breath sounds equal bilaterally. No accessory muscle use. GASTROINTESTINAL: Abdomen soft, non-tender, nondistended. MUSCULOSKELETAL: No cyanosis, or edema. SKIN: Warm and dry. NEURO: No focal neurological deficitis. A/P Problem List: (1) Blindness - both eyes Status: Chronic (2) HTN (hypertension) ICD Code: I10 - Essential (primary) hypertension Status: Chronic (3) Leukopenia ICD Code: D72.819 - Decreased white blood cell count, unspecified Status: Acute Assessment and Plan Assessment and plan 36-year-old male, consult for neutropenia/leukopenia, and thrombocytopenia Neutropenia Leukopenia Thrombocytopenia History of splenomegaly Follow CBC Hematology following Splenomegaly may have a correlation Bone marrow biopsy planned Chronic blindness Supportive care Schizoaffective disorder Continue management per inpatient psychiatry plan DVT prophylaxis Patient is ambulatory and active Elpidio Castro MD Mar 13, 2017 11:36
[2017-03-13] MEDS ORDERED: MIDAZOLAM HCL 5 MG/5 ML VIAL ONE (16:16)
[2017-03-13] MEDS ORDERED: LIDOCAINE HCL 1% 20 ML VIAL ONE (16:28)
--- NOTE | 2017-03-13 17:07 | PD.RAD ---
Post CT Procedure Prog Note Pre Procedure Diagnosis: (1) Thrombocytopenia Post Procedure Diagnosis: (1) Thrombocytopenia Procedure Date: Mar 13, 2017 Supervising Radiologist: Claudy Amaya Proceduralist/Assist: portia ashby Anesthesia: Conscious Sedation Plan of Activity Patient to Unit: PACU Patient Condition: Good See PACS Report for procedural detail/treatment Claudy Amaya MD Mar 13, 2017 17:07
--- NOTE | 2017-03-13 18:13 | HHI.PYPN ---
Subjective Remarks Patient seen for follow up; chart reviewed. Patient found lying on hospital bed. He states that he is waiting to be taken for bone biopsy. He mentions that he had vomited once last evening and currently feels as if he is getttg "a cold" referring to body aches. He continues to have AH but they are "a little better", last time being last night which they were command AH to kill himself. He currently states feeling "not well". Review of Systems Except as stated in HPI: all other systems reviewed are Neg Objective Alert: Yes [place]: Person, Place, Date Mood: Calm Affect: Restricted (less so today) Memory Intact: Comment (intact) Hallucinations: Other (denies) Delusions: No Delusion Type: Other (denies) Suicidal: Ideation (denies) Homicidal: Ideation (denies) Insight/Judgment Limited insight, fair impulse control and judgment Labs labs reviewed. Test 03/13/17 06:56 White Blood Count 2.2 TH/MM3 Red Blood Count 4.68 MIL/MM3 Hemoglobin 14.2 GM/DL Hematocrit 41.9 % Mean Corpuscular Volume 89.6 FL Mean Corpuscular Hemoglobin 30.4 PG Mean Corpuscular Hemoglobin Concent 33.9 % Red Cell Distribution Width 15.4 % Platelet Count 32 TH/MM3 Mean Platelet Volume 6.7 FL Neutrophils (%) (Auto) 68.0 % Lymphocytes (%) (Auto) 23.7 % Monocytes (%) (Auto) 7.3 % Eosinophils (%) (Auto) 0.6 % Basophils (%) (Auto) 0.4 % Neutrophils # (Auto) 1.5 TH/MM3 Lymphocytes # (Auto) 0.5 TH/MM3 Monocytes # (Auto) 0.2 TH/MM3 Eosinophils # (Auto) 0.0 TH/MM3 Basophils # (Auto) 0.0 TH/MM3 CBC Comment AUTO DIFF Differential Comment AUTO DIFF CONFIRMED Platelet Estimate LOW Platelet Morphology Comment NORMAL Red Cell Morphology Comment NORMAL Blood Urea Nitrogen 9 MG/DL Creatinine 0.72 MG/DL Random Glucose 152 MG/DL Total Protein 8.4 GM/DL Albumin 3.7 GM/DL Calcium Level 8.7 MG/DL Alkaline Phosphatase 109 U/L Aspartate Amino Transf (AST/SGOT) 24 U/L Alanine Aminotransferase (ALT/SGPT) 42 U/L Total Bilirubin 1.1 MG/DL Sodium Level 135 MEQ/L Potassium Level 3.7 MEQ/L Chloride Level 101 MEQ/L Carbon Dioxide Level 29.0 MEQ/L Anion Gap 5 MEQ/L Estimat Glomerular Filtration Rate 124 ML/MIN Vitals/IOs Vital Signs Date Time Temp Pulse Resp B/P (MAP) Pulse Ox O2 Delivery O2 Flow Rate FiO2 03/13/17 17:45 76 17 119/72 (88) 94 Room Air 03/13/17 17:25 97.6 Intake and Output 03/13/17 03/13/17 03/13/17 07:59 15:59 23:59 Intake Total 360 ml Balance 360 ml Assessment & Plan Problem List: (1) Schizoaffective disorder, depressive type ICD Codes: F25.1 - Schizoaffective disorder, depressive type Status: Acute Assessment & Plan Patient noted to have some improvement with mood but continues to have AH. Patient will have bone biopsy today and continue with medical workup. Labs with some improvement of WBC count. Plan to restart quetiapine until after biopsy and will monitor CBC as this medication can cause further leukopenia. Discharge planning in progress. Justification for Cont. Inpt. At risk for further decompensation if at lower level of care. Claudy Friend MD Mar 13, 2017 18:13
[2017-03-13 19:22] LABS: BONE MARROW PROCESSING COMPLETE; IRON STAIN DONE; JENNER GIEMSA STAIN DONE
[2017-03-13 20:00] VITALS: BP 126/72; PULSE 73; PULSE 74; RESP 18; TEMP 97.4; O2SAT 99
[2017-03-13] MEDS: SUCRALFATE 1 GM TAB PO SCH (21:00)
[2017-03-13] MEDS: hydrOXYzine HCL 25 MG TAB PO SCH (21:18)
[2017-03-13] MEDS: traZODone HCL 100 MG TAB PO SCH (21:18)
[2017-03-14 05:25] VITALS: BP 119/78; PULSE 77; RESP 16; TEMP 98.4; O2SAT 96
--- NOTE | 2017-03-14 07:57 | RADRPT ---
EXAM DATE/TIME: 03/13/2017 16:48 [place] COMPARISON: No previous studies available for comparison. INDICATIONS : Splenomegaly,leukopenia and thrombocytopenia SEDATION TIME: 15 minutes BIOPSY SITE: Right [place] MEDICATION(S): 1.) 3 mg midazolam (Versed) IV 2.) 100 mcg fentanyl (Sublimaze) IV DEVICE(S): 1.) 11 gauge On-Control needle MEDICAL HISTORY : Cardiovascular disease. Hypertension. Diabetes,autoimune disease SURGICAL HISTORY : Cholecystectomy ENCOUNTER: Initial ACUITY: 1 day PAIN SCORE: 0/10 LOCATION: Right [place] A total of one core specimen(s) were obtained and sent to the laboratory for pathologic evaluation. PROCEDURE: 1. CT guided biopsy. 2. Conscious sedation with continuous EKG and oximetry monitoring. Prior to the procedure informed consent was obtained. Any appropriate prior imaging studies were rev iewed. Using automated exposure control and adjustment of the mA and/or kV according to patient size , radiation dose was kept as low as reasonably achievable to obtain optimal diagnostic quality images . DICOM format image data is available electronically for review and comparison. The site was prepped in a sterile fashion. Full sterile technique was used, including cap, mask, cara rile gloves and gown and a large sterile sheet. Hand hygiene and 2% chlorhexidine and/or betadine/al cohol prep was utilized per protocol for cutaneous antisepsis. The skin and subcutaneous tissues wer e infiltrated with local anesthetic solution. With CT guidance the previously identified target was localized. Biopsy was performed using the presc ribed needle as above. Following biopsy marrow aspiration was performed with repeat puncture. [place] te hemostasis was obtained with compression at the puncture site. Follow-up CT scan reveals no hemorrhage. Conscious sedation was performed with the prescribed dosages and duration as above in the presence of an independent trained radiology nurse to assist in the monitoring of the patient. EKG and oximetry remained stable throughout the procedure. The patient tolerated the procedure well and there were no complications. The patient was sent to Radiology Outpatient Unit in stable condition. CONCLUSION: 1. Uncomplicated CT guided bone marrow aspirate. 2. Uncomplicated CT guided bone marrow biopsy. Claudy Amaya MD on March 14, 2017 at 7:55 Board Certified Radiologist. This report was verified electronically.
[2017-03-14] MEDS: CITALOPRAM HYDROBROMIDE 40 MG TAB PO SCH (08:38)
[2017-03-14] MEDS: PANTOPRAZOLE SOD 20 MG DELAYED RELEASE TAB PO SCH (08:38)
[2017-03-14] MEDS: THIAMINE HCL 100 MG TAB PO SCH (08:38)
[2017-03-14] MEDS: VALSARTAN 160 MG TAB PO SCH (08:38)
[2017-03-14] MEDS: DOCUSATE SODIUM 50 MG/SENNA 8.6 MG TAB PO SCH ×2 (08:38→20:56)
[2017-03-14] MEDS: CYCLOBENZAPRINE HCL 10 MG TAB PO SCH ×2 (08:38→20:56)
[2017-03-14] MEDS: PREGABALIN 75 MG CAP PO SCH (08:38)
[2017-03-14] MEDS: HYDROCHLOROTHIAZIDE 12.5 MG CAP PO SCH (08:40)
[2017-03-14] MEDS: NICOTINE 21 MG/24 HR PATCH T-DERMAL SCH (08:42)
[2017-03-14] MEDS: TRIAMCINOLONE ACETONIDE 0.1% CREAM 15 GM TOPICAL SCH ×2 (08:42→20:57)
[2017-03-14] MEDS: REMOVE OLD PATCH T-DERMAL SCH (08:42)
[2017-03-14] MEDS: NYSTATIN 100,000 UNIT/GM CREAM 15 GM TOPICAL SCH ×2 (08:42→20:57)
[2017-03-14 11:43] LABS: AUTOMATED NEUTROPHIL # 1.5 TH/MM3 (1.8-7.7); BASOPHIL % 0.8 % (0.0-2.0); EOSINOPHIL % 0.4 % (0.0-4.0); HEMATOCRIT 41.3 % (39.0-51.0); LYMPH % 24.6 % (9.0-44.0); LYMPHOCYTE # 0.6 TH/MM3 (1.0-4.8); MEAN CELL VOLUME 89.5 FL (80.0-100.0); MEAN CORPUSCULAR HEMOGLOBIN 30.7 PG (27.0-34.0); MEAN CORPUSCULAR HGB CONC 34.3 % (32.0-36.0); MONO % 9.6 % (0.0-8.0); NEUT % 64.6 % (16.0-70.0); PLATELET COUNT 34 TH/MM3 (150-450); RED BLOOD COUNT 4.61 MIL/MM3 (4.50-5.90); RED CELL DISTRIBUTION WIDTH 15.1 % (11.6-17.2); WHITE BLOOD COUNT 2.3 TH/MM3 (4.0-11.0)
[2017-03-14 11:49] LABS: HEMO FLAGS AUTO DIFF
[2017-03-14 12:04] LABS: POTASSIUM 3.5 MEQ/L (3.5-5.1)
[2017-03-14 12:47] LABS: CORRECTED NUCLEATED RBC 2 /100 WBC (0-0); MYELOCYTES 1 % (0-0); NEUTROPHIL # MANUAL DIFF 1.7 TH/MM3 (1.8-7.7); PLATELET ESTIMATE SMEAR LOW (NORMAL); PLATELET MORPHOLOGY NORMAL (NORMAL); POLYS (SEG NEUTROPHILS) 73 % (16-70); SCAN/DIFF FINAL DIFF MANUAL; WBC DIFF SAMPLE 100
[2017-03-14] MEDS: ACETAMINOPHEN 325 MG TAB PO PRN (16:18)
--- NOTE | 2017-03-14 16:47 | HHI.PYPN ---
Subjective Remarks Patient seen for follow up; chart reviewed. Patient found lying on hospital bed , noted to be slightly less engaged. He states feeling "ok" but reports having some body aches and feels "like I'm getting a cold". He reports continuing feeling sad and depressed but no longer is having AH (last time being a couple of nights ago). Currently he denies any suicidal ideation. Review of Systems Except as stated in HPI: all other systems reviewed are Neg Objective Alert: Yes [place]: Person, Place, Date Mood: Calm Affect: Restricted Memory Intact: Comment (intact) Hallucinations: Other (denies) Delusions: No Delusion Type: Other (denies) Suicidal: Ideation (denies) Homicidal: Ideation (denies) Insight/Judgment limited insight, impulse control and judgment. Labs labs reviewed Test 03/13/17 17:00 03/14/17 10:51 Bone Marrow Immunophenotyping White Blood Count 2.3 TH/MM3 Red Blood Count 4.61 MIL/MM3 Hemoglobin 14.2 GM/DL Hematocrit 41.3 % Mean Corpuscular Volume 89.5 FL Mean Corpuscular Hemoglobin 30.7 PG Mean Corpuscular Hemoglobin Concent 34.3 % Red Cell Distribution Width 15.1 % Platelet Count 34 TH/MM3 Mean Platelet Volume 6.7 FL Neutrophils (%) (Auto) 64.6 % Lymphocytes (%) (Auto) 24.6 % Monocytes (%) (Auto) 9.6 % Eosinophils (%) (Auto) 0.4 % Basophils (%) (Auto) 0.8 % Neutrophils # (Auto) 1.5 TH/MM3 Lymphocytes # (Auto) 0.6 TH/MM3 Monocytes # (Auto) 0.2 TH/MM3 Eosinophils # (Auto) 0.0 TH/MM3 Basophils # (Auto) 0.0 TH/MM3 CBC Comment AUTO DIFF Differential Total Cells Counted 100 Neutrophils % (Manual) 73 % Lymphocytes % 15 % Monocytes % 11 % Neutrophils # (Manual) 1.7 TH/MM3 Myelocytes 1 % Nucleated Red Blood Cells 2 /100 WBC Differential Comment FINAL DIFF MANUAL Platelet Estimate LOW Platelet Morphology Comment NORMAL Basophilic Stippling FAINT Blood Urea Nitrogen 13 MG/DL Creatinine 0.82 MG/DL Random Glucose 180 MG/DL Calcium Level 8.6 MG/DL Sodium Level 135 MEQ/L Potassium Level 3.5 MEQ/L Chloride Level 102 MEQ/L Carbon Dioxide Level 28.0 MEQ/L Anion Gap 5 MEQ/L Estimat Glomerular Filtration Rate 106 ML/MIN Vitals/IOs Vital Signs Date Time Temp Pulse Resp B/P (MAP) Pulse Ox O2 Delivery O2 Flow Rate FiO2 03/14/17 05:25 98.4 77 16 119/78 (92) 96 03/13/17 18:30 Room Air Assessment & Plan Problem List: (1) Schizoaffective disorder, depressive type ICD Codes: F25.1 - Schizoaffective disorder, depressive type Status: Acute Assessment & Plan Patient continues to endorse depressive symptoms, will start bupropion 100mg PO BID, continue Celexa 40mg PO daily, continue to monitor vitals and signs of infection as patient currently with leukopenia. Recent bone marrow biopsy report pending. Discharge planning in progress. Justification for Cont. Inpt. At risk for further decompensation if at lower level of care. Claudy Friend MD Mar 14, 2017 16:47
[2017-03-14 18:26] VITALS: BP 148/94; PULSE 76; RESP 18; TEMP 98.1; O2SAT 98
[2017-03-14] MEDS: buPROPion HCL 100 MG TAB PO SCH (20:56)
[2017-03-14] MEDS: hydrOXYzine HCL 25 MG TAB PO SCH (20:57)
[2017-03-14] MEDS: SUCRALFATE 1 GM TAB PO SCH (20:57)
[2017-03-14] MEDS: traZODone HCL 100 MG TAB PO SCH (20:57)
[2017-03-15 06:32] VITALS: BP 119/72; PULSE 68; RESP 16; TEMP 98; O2SAT 95
[2017-03-15] MEDS: PREGABALIN 75 MG CAP PO SCH (08:47)
[2017-03-15] MEDS: CYCLOBENZAPRINE HCL 10 MG TAB PO SCH ×2 (08:47→23:12)
[2017-03-15] MEDS: VALSARTAN 160 MG TAB PO SCH (08:47)
[2017-03-15] MEDS: CITALOPRAM HYDROBROMIDE 40 MG TAB PO SCH (08:48)
[2017-03-15] MEDS: DOCUSATE SODIUM 50 MG/SENNA 8.6 MG TAB PO SCH ×2 (08:48→23:13)
[2017-03-15] MEDS: HYDROCHLOROTHIAZIDE 12.5 MG CAP PO SCH (08:48)
[2017-03-15] MEDS: THIAMINE HCL 100 MG TAB PO SCH (08:48)
[2017-03-15] MEDS: PANTOPRAZOLE SOD 20 MG DELAYED RELEASE TAB PO SCH (08:48)
[2017-03-15] MEDS: REMOVE OLD PATCH T-DERMAL SCH (08:49)
[2017-03-15] MEDS: buPROPion HCL 100 MG TAB PO SCH ×2 (08:49→23:13)
[2017-03-15] MEDS: NYSTATIN 100,000 UNIT/GM CREAM 15 GM TOPICAL SCH ×2 (08:50→21:00)
[2017-03-15] MEDS: TRIAMCINOLONE ACETONIDE 0.1% CREAM 15 GM TOPICAL SCH ×2 (08:50→21:00)
[2017-03-15] MEDS: NICOTINE 21 MG/24 HR PATCH T-DERMAL SCH (08:50)
[2017-03-15 09:09] LABS: AUTOMATED NEUTROPHIL # 1.6 TH/MM3 (1.8-7.7); BASOPHIL % 0.5 % (0.0-2.0); EOSINOPHIL % 0.7 % (0.0-4.0); HEMATOCRIT 45.7 % (39.0-51.0); LYMPH % 25.9 % (9.0-44.0); LYMPHOCYTE # 0.6 TH/MM3 (1.0-4.8); MEAN CELL VOLUME 90.3 FL (80.0-100.0); MEAN CORPUSCULAR HEMOGLOBIN 30.7 PG (27.0-34.0); MEAN CORPUSCULAR HGB CONC 33.9 % (32.0-36.0); MONO % 8.9 % (0.0-8.0); PLATELET COUNT 32 TH/MM3 (150-450); RED BLOOD COUNT 5.06 MIL/MM3 (4.50-5.90); RED CELL DISTRIBUTION WIDTH 15.2 % (11.6-17.2); WHITE BLOOD COUNT 2.4 TH/MM3 (4.0-11.0)
[2017-03-15 09:11] LABS: HEMO FLAGS AUTO DIFF
[2017-03-15 11:03] LABS: PLATELET ESTIMATE SMEAR LOW (NORMAL); PLATELET MORPHOLOGY NORMAL (NORMAL); SCAN/DIFF AUTO DIFF CONFIRMED
--- NOTE | 2017-03-15 14:20 | HHI.PYPN ---
Subjective Remarks Pt seen and discussed with staff. No behavioral problems on unit. He is compliant with medications and denies side effects. He denies AVH. He has been withdrawn and isolative to room today. No SI/HI Objective Alert: Yes [place]: Person, Place, Date Mood: Calm Affect: Restricted Memory Intact: Comment (intact) Hallucinations: Other (denies) Delusions: No Delusion Type: Other (denies) Suicidal: Ideation (denies) Homicidal: Ideation (denies) Insight/Judgment poor Labs Test 03/15/17 08:00 White Blood Count 2.4 TH/MM3 Red Blood Count 5.06 MIL/MM3 Hemoglobin 15.5 GM/DL Hematocrit 45.7 % Mean Corpuscular Volume 90.3 FL Mean Corpuscular Hemoglobin 30.7 PG Mean Corpuscular Hemoglobin Concent 33.9 % Red Cell Distribution Width 15.2 % Platelet Count 32 TH/MM3 Mean Platelet Volume 6.7 FL Neutrophils (%) (Auto) 64.0 % Lymphocytes (%) (Auto) 25.9 % Monocytes (%) (Auto) 8.9 % Eosinophils (%) (Auto) 0.7 % Basophils (%) (Auto) 0.5 % Neutrophils # (Auto) 1.6 TH/MM3 Lymphocytes # (Auto) 0.6 TH/MM3 Monocytes # (Auto) 0.2 TH/MM3 Eosinophils # (Auto) 0.0 TH/MM3 Basophils # (Auto) 0.0 TH/MM3 CBC Comment AUTO DIFF Differential Comment AUTO DIFF CONFIRMED Platelet Estimate LOW Platelet Morphology Comment NORMAL Vitals/IOs Vital Signs Date Time Temp Pulse Resp B/P (MAP) Pulse Ox O2 Delivery O2 Flow Rate FiO2 03/15/17 06:32 98.0 68 16 119/72 (88) 95 03/13/17 18:30 Room Air Assessment & Plan Problem List: (1) Schizoaffective disorder, depressive type ICD Codes: F25.1 - Schizoaffective disorder, depressive type Status: Acute Assessment & Plan Continue current tx plan. Estimated LOS: days Justification for Cont. Inpt. risk of decompensation Rhonda Lund MD Mar 15, 2017 14:20
[2017-03-15 18:42] VITALS: BP 137/86; PULSE 88; RESP 18; TEMP 97.3; O2SAT 96
[2017-03-15] MEDS: traZODone HCL 100 MG TAB PO SCH (23:12)
[2017-03-15] MEDS: hydrOXYzine HCL 25 MG TAB PO SCH (23:12)
[2017-03-15] MEDS: SUCRALFATE 1 GM TAB PO SCH (23:13)
[2017-03-16 06:31] VITALS: BP 127/76; PULSE 73; RESP 18; TEMP 98.1; O2SAT 98
[2017-03-16] MEDS: buPROPion HCL 100 MG TAB PO SCH ×2 (08:15→22:14)
[2017-03-16] MEDS: CITALOPRAM HYDROBROMIDE 40 MG TAB PO SCH (08:16)
[2017-03-16] MEDS: VALSARTAN 160 MG TAB PO SCH (08:16)
[2017-03-16] MEDS: PREGABALIN 75 MG CAP PO SCH (08:16)
[2017-03-16] MEDS: PANTOPRAZOLE SOD 20 MG DELAYED RELEASE TAB PO SCH (08:16)
[2017-03-16] MEDS: THIAMINE HCL 100 MG TAB PO SCH (08:17)
[2017-03-16] MEDS: CYCLOBENZAPRINE HCL 10 MG TAB PO SCH ×2 (08:17→22:14)
[2017-03-16] MEDS: DOCUSATE SODIUM 50 MG/SENNA 8.6 MG TAB PO SCH ×2 (08:17→22:14)
[2017-03-16] MEDS: HYDROCHLOROTHIAZIDE 12.5 MG CAP PO SCH (08:18)
[2017-03-16] MEDS: TRIAMCINOLONE ACETONIDE 0.1% CREAM 15 GM TOPICAL SCH ×2 (08:18→22:15)
[2017-03-16] MEDS: NICOTINE 21 MG/24 HR PATCH T-DERMAL SCH (08:18)
[2017-03-16] MEDS: REMOVE OLD PATCH T-DERMAL SCH (08:18)
[2017-03-16] MEDS: NYSTATIN 100,000 UNIT/GM CREAM 15 GM TOPICAL SCH ×2 (08:19→21:00)
[2017-03-16 10:26] LABS: HEMATOCRIT 42.2 % (39.0-51.0); MEAN CELL VOLUME 89.7 FL (80.0-100.0); MEAN CORPUSCULAR HEMOGLOBIN 30.9 PG (27.0-34.0); MEAN CORPUSCULAR HGB CONC 34.4 % (32.0-36.0); PLATELET COUNT 28 TH/MM3 (150-450); RED CELL DISTRIBUTION WIDTH 14.7 % (11.6-17.2); WHITE BLOOD COUNT 2.2 TH/MM3 (4.0-11.0)
[2017-03-16 10:28] LABS: REVIEW FLAG FINAL
--- NOTE | 2017-03-16 12:45 | HHI.PR ---
Subjective Remarks patient pleasant and cooperative no pain complains from BM biopsy site denies any bleeding- no bleeding when brushing, no blood noted on stools,no epistaxis Objective Vitals Vital Signs Date Time Temp Pulse Resp B/P (MAP) Pulse Ox O2 Delivery O2 Flow Rate FiO2 03/16/17 06:31 98.1 73 18 127/76 (93) 98 03/15/17 18:42 97.3 88 18 137/86 (103) 96 I/O 03/15/17 03/15/17 03/15/17 03/16/17 03/16/17 03/16/17 07:00 15:00 23:00 07:00 15:00 23:00 Intake Total 240 ml Balance 240 ml Intake Oral 240 ml Result Diagram: 03/16/17 0947 03/14/17 1051 Other Results Imaging Last Impressions Bone Biopsy CT 03/13/17 0000 Signed Impressions: Service Date/Time: February 16:48 - CONCLUSION: 1. Uncomplicated CT guided bone marrow aspirate. 2. Uncomplicated CT guided bone marrow biopsy. Claudy Amaya MD Abdomen/Pelvis CT 03/10/17 0000 Signed Impressions: Service Date/Time: Friday, March 10, 2017 22:56 - CONCLUSION: 1. Significant splenomegaly. The spleen is larger from the 2009 exam. No splenic lesion. 2. Prior cholecystectomy. 3. No acute abnormality. Juan Manuel David Jr., MD Objective Remarks awake and alert, pleasant and cooperative lungs clear regular rhythm abdomen soft, nontender extremities no edema right Hip- BM site- no erythema gait steady Procedures 03/14- BM biopsy A/P Problem List: (1) Schizoaffective disorder, depressive type ICD Code: F25.1 - Schizoaffective disorder, depressive type Status: Acute (2) schizoaffective disorder depressed Status: Acute (3) Tension-type headache Status: Chronic (4) Dyslipidemia Status: Chronic (5) Blindness - both eyes Status: Chronic (6) HTN (hypertension) ICD Code: I10 - Essential (primary) hypertension Status: Chronic (7) Thrombocytopenia ICD Code: D69.6 - Thrombocytopenia, unspecified Status: Acute (8) Leukopenia ICD Code: D72.819 - Decreased white blood cell count, unspecified Status: Acute Assessment and Plan 36-year-old male, consult for neutropenia/leukopenia, and thrombocytopenia S/P BM biospy- 03/14 Neutropenia Leukopenia Thrombocytopenia History of splenomegaly Hematology following OP ff up with Hematology- BM biopsy report still pending Chronic blindness Supportive care Schizoaffective disorder Continue management per inpatient psychiatry plan DVT prophylaxis Patient is ambulatory and active DC planning - to a care home Lesvia Goel MD Mar 16, 2017 12:45
--- NOTE | 2017-03-16 15:47 | HHI.PYPN ---
Subjective Remarks Pt seen and discussed with staff. No behavioral problems. No medication side effects. Cooperative with treatment. He has been out in the dayroom and interacting more with peers today. No SI/HI. Objective Alert: Yes [place]: Person, Place, Date Mood: Calm Affect: Restricted Memory Intact: Comment (intact) Hallucinations: Other (denies) Delusions: No Delusion Type: Other (denies) Suicidal: Ideation (denies) Homicidal: Ideation (denies) Insight/Judgment fair Labs Test 03/16/17 09:47 White Blood Count 2.2 TH/MM3 Red Blood Count 4.70 MIL/MM3 Hemoglobin 14.5 GM/DL Hematocrit 42.2 % Mean Corpuscular Volume 89.7 FL Mean Corpuscular Hemoglobin 30.9 PG Mean Corpuscular Hemoglobin Concent 34.4 % Red Cell Distribution Width 14.7 % Platelet Count 28 TH/MM3 Mean Platelet Volume 7.0 FL Vitals/IOs Vital Signs Date Time Temp Pulse Resp B/P (MAP) Pulse Ox O2 Delivery O2 Flow Rate FiO2 03/16/17 06:31 98.1 73 18 127/76 (93) 98 03/13/17 18:30 Room Air Intake and Output 03/16/17 03/16/17 03/16/17 07:59 15:59 23:59 Intake Total 240 ml Balance 240 ml Assessment & Plan Problem List: (1) Schizoaffective disorder, depressive type ICD Codes: F25.1 - Schizoaffective disorder, depressive type Status: Acute Assessment & Plan Pt improving. Continue current tx plan. Estimated LOS: days Justification for Cont. Inpt. risk of decompensation Rhonda Lund MD Mar 16, 2017 15:47
[2017-03-16 18:31] VITALS: BP 124/90; PULSE 90; RESP 18; TEMP 98.6; O2SAT 98
[2017-03-16] MEDS: hydrOXYzine HCL 25 MG TAB PO SCH (22:14)
[2017-03-16] MEDS: SUCRALFATE 1 GM TAB PO SCH (22:14)
[2017-03-16] MEDS: traZODone HCL 100 MG TAB PO SCH (22:14)
[2017-03-17 04:48] VITALS: BP 137/84; PULSE 98; RESP 17; TEMP 97.9; O2SAT 98
[2017-03-17] MEDS: VALSARTAN 160 MG TAB PO SCH (10:36)
[2017-03-17] MEDS: PANTOPRAZOLE SOD 20 MG DELAYED RELEASE TAB PO SCH (10:36)
[2017-03-17] MEDS: THIAMINE HCL 100 MG TAB PO SCH (10:36)
[2017-03-17] MEDS: PREGABALIN 75 MG CAP PO SCH (10:36)
[2017-03-17] MEDS: buPROPion HCL 100 MG TAB PO SCH ×2 (10:36→23:01)
[2017-03-17] MEDS: CYCLOBENZAPRINE HCL 10 MG TAB PO SCH ×2 (10:37→23:01)
[2017-03-17] MEDS: DOCUSATE SODIUM 50 MG/SENNA 8.6 MG TAB PO SCH ×2 (10:37→21:00)
[2017-03-17] MEDS: HYDROCHLOROTHIAZIDE 12.5 MG CAP PO SCH (10:37)
[2017-03-17] MEDS: CITALOPRAM HYDROBROMIDE 40 MG TAB PO SCH (10:37)
[2017-03-17] MEDS: NICOTINE 21 MG/24 HR PATCH T-DERMAL SCH (10:40)
[2017-03-17] MEDS: NYSTATIN 100,000 UNIT/GM CREAM 15 GM TOPICAL SCH ×2 (10:41→21:00)
[2017-03-17] MEDS: REMOVE OLD PATCH T-DERMAL SCH (10:41)
[2017-03-17] MEDS: TRIAMCINOLONE ACETONIDE 0.1% CREAM 15 GM TOPICAL SCH ×2 (10:41→21:00)
--- NOTE | 2017-03-17 14:16 | PD.ONC.PN ---
Subjective Subjective Remarks Afebrile overnight. Patient resting in common area. No complaints. Denies pain at bone marrow biopsy site. Objective Data Date Time Temp Pulse Resp B/P (MAP) Pulse Ox O2 Delivery O2 Flow Rate FiO2 03/17/17 04:48 97.9 98 17 137/84 (101) 98 03/16/17 18:31 98.6 90 18 124/90 (101) 98 03/17/17 03/17/17 03/17/17 07:00 15:00 23:00 Intake Total 520 ml Balance 520 ml Result Diagram: 03/16/17 0947 03/14/17 1051 Administered Medications Medications (Trade) Dose Ordered Sig/Lobito Route PRN Reason Start Time Stop Time Status Last Admin Dose Admin Citalopram Hydrobromide (CeleXA) 40 mg DAILY PO 03/11/17 09:00 03/17/17 10:37 Cyclobenzaprine HCl (Flexeril) 5 mg BID PO 03/10/17 21:00 03/17/17 10:37 Hydrochlorothiazide (Microzide) 12.5 mg DAILY PO 03/11/17 09:00 03/17/17 10:37 Hydroxyzine HCl (Atarax) 25 mg HS PO 03/10/17 21:00 03/16/17 22:14 Nystatin (Mycostatin Cream) 1 applic Q12HR TOPICAL 03/10/17 21:00 03/16/17 21:00 Pantoprazole Sodium (Protonix) 20 mg DAILY PO 03/11/17 09:00 03/17/17 10:36 Pregabalin (Lyrica) 75 mg DAILY PO 03/11/17 09:00 03/17/17 10:36 Senna/Docusate Sodium (Carrie-Colace) 1 tab BID PO 03/10/17 21:00 03/17/17 10:37 Sucralfate (Carafate) 1 gm HS PO 03/10/17 21:00 03/16/17 22:14 Thiamine HCl (Vitamin B1) 100 mg DAILY PO 03/11/17 09:00 03/17/17 10:36 Valsartan (Diovan) 160 mg DAILY PO 03/11/17 09:00 03/17/17 10:36 Trazodone HCl (Desyrel) 200 mg HS PO 03/10/17 21:00 03/16/17 22:14 Acetaminophen (Tylenol) 650 mg Q4H PRN PO Pain 1-5 or Temp >101F 03/10/17 10:15 03/14/17 16:18 Triamcinolone Acetonide (Aristocort 0.1% Cream) 1 applic BID TOPICAL 03/10/17 21:00 03/16/17 22:15 Ondansetron HCl (Zofran Odt) 4 mg Q4H PRN PO nausea 03/12/17 01:30 03/12/17 14:11 Bupropion HCl (Wellbutrin) 100 mg Q12HR PO 03/14/17 21:00 03/17/17 10:36 Objective Remarks GENERAL: Young man, upright in common area. SKIN: Warm and dry. 1mm wound in right iliac creat. no bruising or hematoma formation. no bleeding. HEAD: Normocephalic. NECK: Supple, trachea midline. CARDIOVASCULAR: Regular rate and rhythm. RESPIRATORY: Breath sounds equal bilaterally. No accessory muscle use. GASTROINTESTINAL: Abdomen distended. no point tenderness. EXTREMITIES: No cyanosis NEUROLOGICAL: awake and alert, normal speech. moving Assessment/Plan Problem List: (1) Bicytopenia ICD Codes: D75.89 - Other specified diseases of blood and blood-forming organs Plan: 03/17: await pathology. monitor CBC. if patient is discharged before bone marrow biopsy returns, pathology could be reviewed on an outpatient basis with his teacher learning disabled Dr. Taylor. --has splenomegaly of unclear etiology-->has h/o primary biliary cirrhosis, could be cause --will obtain bone marrow biopsy. --has chronic leukopenia and thrombocytopenia dating back to 2010 -- has been evaluated by a teacher learning disabled, Dr. Nazanin Taylor at [facility]. According to the patient he was told that his platelets and white count are low due to the enlarged spleen. We do not have any of those records available. --B12/folate WNL --iron studies show no deficiency --hepatitis panel (2016) negative Assessment 36y/o male admitted with depression with SI. Hematology consulted for leukopenia and thrombocytopenia. history of metabolic syndrome, hypercholesterolemia, depression, schizophrenia, gastroesophageal reflux disease, hypertension and splenomegaly. Attending Statement no new c/o BM path is pending Ok to d/c from my standpoint. BM result to be fu by his teacher learning disabled Dr Taylor at [facility]. The exam, history, and the medical decision-making described in the above note were completed with the assistance of the mid-level provider. I reviewed and agree with the findings presented. I attest that I had a [id number] encounter with the patient on the same day, and personally performed and documented my assessment and findings in the medical record. Lilia Vasquez Mar 17, 2017 14:16 Martin Song MD Mar 17, 2017 18:26
--- NOTE | 2017-03-17 17:58 | HHI.PYPN ---
Subjective Remarks Patient seen for follow-up, chart reviewed. Patient found sitting in common area, noted to be in good spirits. He state having had a "long weekend" and is feeling better; denies any AH (last being one week ago). He states that he feels "a little sad" but denies any suicidal ideations. He states feeling ready to go back home. Review of Systems Except as stated in HPI: all other systems reviewed are Neg Objective Alert: Yes [place]: Person, Place, Date Mood: Calm Affect: Appropriate Memory Intact: Comment (intact) Hallucinations: Other (denies) Delusions: No Delusion Type: Other (denies) Suicidal: Ideation (denies) Homicidal: Ideation (denies) Insight/Judgment fair insight, impulse control and judgment Vitals/IOs Vital Signs Date Time Temp Pulse Resp B/P (MAP) Pulse Ox O2 Delivery O2 Flow Rate FiO2 03/17/17 04:48 97.9 98 17 137/84 (101) 98 03/13/17 18:30 Room Air Intake and Output 03/17/17 03/17/17 03/18/17 08:00 16:00 00:00 Intake Total 260 ml 260 ml Balance 260 ml 260 ml Assessment & Plan Problem List: (1) Schizoaffective disorder, depressive type ICD Codes: F25.1 - Schizoaffective disorder, depressive type Status: Acute Assessment & Plan Patient no longer endorsing perceptual disturbances, denies any depressive symtoms aside from slightly sad mood and denies any suicidal ideations. Patient to continue current treatment and will hold off on neuroleptics due to current leukopenia and thrombocytopenia. As per hematology/oncology note: BM result to be fu by his green end department supervisor Dr Taylor at [facility]. Patient with probable discharge tomorrow back to to halfway. Discharge planning in progress. Justification for Cont. Inpt. At risk for further decompensation if at lower level of care Claudy Friend MD Mar 17, 2017 17:58
[2017-03-17] MEDS: SUCRALFATE 1 GM TAB PO SCH (23:01)
[2017-03-17] MEDS: traZODone HCL 100 MG TAB PO SCH (23:01)
[2017-03-17] MEDS: hydrOXYzine HCL 25 MG TAB PO SCH (23:02)
[2017-03-18 06:00] VITALS: BP 108/62; PULSE 97; RESP 18; TEMP 98.1; O2SAT 96
[2017-03-18] MEDS: TRIAMCINOLONE ACETONIDE 0.1% CREAM 15 GM TOPICAL SCH (09:00)
[2017-03-18] MEDS: NYSTATIN 100,000 UNIT/GM CREAM 15 GM TOPICAL SCH (09:00)
[2017-03-18] MEDS: REMOVE OLD PATCH T-DERMAL SCH (09:00)
[2017-03-18] MEDS: NICOTINE 21 MG/24 HR PATCH T-DERMAL SCH (09:00)
[2017-03-18] MEDS: CITALOPRAM HYDROBROMIDE 40 MG TAB PO SCH (09:43)
[2017-03-18] MEDS: DOCUSATE SODIUM 50 MG/SENNA 8.6 MG TAB PO SCH (09:43)
[2017-03-18] MEDS: CYCLOBENZAPRINE HCL 10 MG TAB PO SCH (09:43)
[2017-03-18] MEDS: THIAMINE HCL 100 MG TAB PO SCH (09:43)
[2017-03-18] MEDS: PANTOPRAZOLE SOD 20 MG DELAYED RELEASE TAB PO SCH (09:43)
[2017-03-18] MEDS: PREGABALIN 75 MG CAP PO SCH (09:43)
[2017-03-18] MEDS: HYDROCHLOROTHIAZIDE 12.5 MG CAP PO SCH (09:43)
[2017-03-18] MEDS: buPROPion HCL 100 MG TAB PO SCH (09:43)
[2017-03-18] MEDS: VALSARTAN 160 MG TAB PO SCH (09:44)
--- NOTE | 2017-03-18 11:36 | PD.ONC.PN ---
Subjective Subjective Remarks Afebrile overnight. Patient resting in bed. Hoping to go home soon. No complaints. Objective Data Date Time Temp Pulse Resp B/P (MAP) Pulse Ox O2 Delivery O2 Flow Rate FiO2 03/18/17 06:00 98.1 97 18 108/62 (77) 96 03/18/17 03/18/17 03/18/17 07:00 15:00 23:00 Intake Total 360 ml Balance 360 ml Result Diagram: 03/16/17 0947 03/14/17 1051 Administered Medications Medications (Trade) Dose Ordered Sig/Lobito Route PRN Reason Start Time Stop Time Status Last Admin Dose Admin Citalopram Hydrobromide (CeleXA) 40 mg DAILY PO 03/11/17 09:00 03/18/17 09:43 Cyclobenzaprine HCl (Flexeril) 5 mg BID PO 03/10/17 21:00 03/18/17 09:43 Hydrochlorothiazide (Microzide) 12.5 mg DAILY PO 03/11/17 09:00 03/18/17 09:43 Hydroxyzine HCl (Atarax) 25 mg HS PO 03/10/17 21:00 03/17/17 23:02 Nystatin (Mycostatin Cream) 1 applic Q12HR TOPICAL 03/10/17 21:00 03/17/17 21:00 Pantoprazole Sodium (Protonix) 20 mg DAILY PO 03/11/17 09:00 03/18/17 09:43 Pregabalin (Lyrica) 75 mg DAILY PO 03/11/17 09:00 03/18/17 09:43 Senna/Docusate Sodium (Carrie-Colace) 1 tab BID PO 03/10/17 21:00 03/18/17 09:43 Sucralfate (Carafate) 1 gm HS PO 03/10/17 21:00 03/17/17 23:01 Thiamine HCl (Vitamin B1) 100 mg DAILY PO 03/11/17 09:00 03/18/17 09:43 Valsartan (Diovan) 160 mg DAILY PO 03/11/17 09:00 03/18/17 09:44 Trazodone HCl (Desyrel) 200 mg HS PO 03/10/17 21:00 03/17/17 23:01 Acetaminophen (Tylenol) 650 mg Q4H PRN PO Pain 1-5 or Temp >101F 03/10/17 10:15 03/14/17 16:18 Triamcinolone Acetonide (Aristocort 0.1% Cream) 1 applic BID TOPICAL 03/10/17 21:00 03/17/17 21:00 Ondansetron HCl (Zofran Odt) 4 mg Q4H PRN PO nausea 03/12/17 01:30 03/12/17 14:11 Bupropion HCl (Wellbutrin) 100 mg Q12HR PO 03/14/17 21:00 03/18/17 09:43 Objective Remarks GENERAL: Young man, lying in bed in nad. SKIN: Warm and dry. HEAD: Normocephalic. NECK: Supple, trachea midline. CARDIOVASCULAR: Regular rate and rhythm. RESPIRATORY: Breath sounds equal bilaterally. No accessory muscle use. GASTROINTESTINAL: Abdomen with mild distension. EXTREMITIES: No cyanosis NEUROLOGICAL: awake, alert. normal speech. Assessment/Plan Problem List: (1) Bicytopenia ICD Codes: D75.89 - Other specified diseases of blood and blood-forming organs Plan: 03/18: bone marrow biopsy results showing normocellular bone marrow with mild myeloid hyperplasia. patient's thrombocytopenia consistent with splenomegaly. patient clear for discharge from hematology perspective. Results reviewed and discussed with patient and advised patient to follow up with his tent assembler Dr. Taylor upon discharge. --has splenomegaly of unclear etiology-->has h/o primary biliary cirrhosis, could be cause --has chronic leukopenia and thrombocytopenia dating back to 2010 -- has been evaluated by a tent assembler, Dr. Nazanin Taylor at [facility]. According to the patient he was told that his platelets and white count are low due to the enlarged spleen. We do not have any of those records available. --B12/folate WNL --iron studies show no deficiency --hepatitis panel (2016) negative Assessment 36y/o male admitted with depression with SI. Hematology consulted for leukopenia and thrombocytopenia. history of metabolic syndrome, hypercholesterolemia, depression, schizophrenia, gastroesophageal reflux disease, hypertension and splenomegaly. Attending Statement no new c/o BM = no Lymphoma or leukemia. He has hyperspleenism. Pt will follow up with his hematlogist Dr Taylor. Ok to d/c sign off Lilia Vasquez Mar 18, 2017 11:36 Martin Song MD Mar 18, 2017 18:10
[2017-03-18] MEDS ORDERED: CARA1TAB6 PO (12:22)
[2017-03-18] MEDS ORDERED: HYDR-3133 PO (12:22)
[2017-03-18] MEDS ORDERED: DIOV160T6 PO (12:22)
[2017-03-18] MEDS ORDERED: CELE40TA PO (12:22)
[2017-03-18] MEDS ORDERED: SENN1TAB PO (12:22)
[2017-03-18] MEDS ORDERED: BUPR100T4 PO (12:22)
[2017-03-18] MEDS ORDERED: GNP100TA3 PO (12:22)
[2017-03-18] MEDS ORDERED: HYDR12.57 PO (12:22)
[2017-03-18] MEDS ORDERED: TRAZ100T6 PO (12:22)
[2017-03-18] MEDS ORDERED: TRIA.1%T TOPICAL (12:22)
[2017-03-18] MEDS ORDERED: NYST15T TOPICAL (12:22)
[2017-03-18] MEDS ORDERED: PANT20 PO (12:22)
[2017-03-18] MEDS ORDERED: CYCL5TAB PO (12:22)
[2017-03-18] MEDS ORDERED: LYRI75CA PO (12:22)
--- NOTE | 2017-03-18 16:24 | HHI.DS ---
Psychiatry Discharge Summary Inpatient Psychiatric care?: Yes Advance Directive: No Reason Not Provided: Due to Patient Condition Mental Health AdvanceDirective: No Health Care Proxy: No Admission Admission Date Mar 10, 2017 at 10:13 Admission Diagnosis: (1) schizoaffective disorder depressed Brief History Patient is a 36 y/o man, single, domiciled in a nursing home, unemployed on SSI, past psychiatric history of schizophrenia, intellectual deficit, previous psychiatric admissions, reported previous suicide attempts, denies self injurious behavior, past medical history of HTN, GERD, HLD, metabolic syndrome, blindness since and recent splenomegaly, who was admitted to the inpatient psychiatry unit under [place] [employer] for suicidal ideations, attempting to bang his head against the wall in the context of command auditory hallucinations to kill himself and depressive symptoms. Discussion with nursing staff, it was reported that the patient noted to be pleasant and cooperative with staff. Patient was seen on the inpatient psychiatry unit lying on hospital bed, calm and cooperative with interview. Patient states that he was having command auditory hallucinations telling him to hurt and kill himself which he had started to bang his head against the wall. He reports that he has been feeling depressed lately, worsening for the past week but unable to identifying recent stressor aside from missing his family who live out of state (siblings in [place]), He states that since being brought to the hospital the voices have been not that bad currently denies SI, HI, AVH or delusions at this time. Past psychiatric history: previous psychiatric diagnosis of schizophrenia and depression as per patient, intellectual disability, multiple psychiatric admissions (last in July 2016 in [place]), reports couple of previous suicide attempts (last in 2008 which he was stopped from attempting to cut himself) denies self injurious behavior. Reports being followed by FACT team. Substance use history: denies Past medical history: HTN, GERD, HLD, metabolic syndrome, blind since , recently with splenomegaly along with leukopenia and thrombocytopenia. Allergies: NKDA Social history: single, no children, living in nursing home over one year, unemployed on [employer], family lives in [place], highest education: 2nd grade was in special education classes. Tobacco Use In Past 30 Days: No Tobacco Past 30 Days Alcohol Use: Never Hospital Course Patient is a 36 y/o man, single, domiciled in a nursing home, unemployed on SSI, past psychiatric history of schizophrenia, intellectual deficit, previous psychiatric admissions, reported previous suicide attempts, denies self injurious behavior, past medical history of HTN, GERD, HLD, metabolic syndrome, blindness since and recent splenomegaly, who was admitted to the inpatient psychiatry unit under [place] [employer] for suicidal ideations, attempting to bang his head against the wall in the context of command auditory hallucinations to kill himself and depressive symptoms. Patient was admitted to the inpatient psychiatry unit for stabilization. Patient was continued on citalopram 40mg PO daily, trazodone 20mg PO HS with quetiapine held due to leukopenia and thrombocytopenia, and later started on buproprion 100mg PO BID which he responded well to with improvement of mood. Patient did not endorse feeling sad or depressed nor having suicidal ideation along with cessation of auditory hallucinations. Patient had bone marrow biopsy performed as part of work up by hematology/oncology and recommended continued follow up as an outpatient until pathology report completed. Upon discharge patient had no physical complaints, noted to be calm and cooperative, noted to have maintained stable mood with no perceptual disturbances. Patient advised to continue medication regimen along with adherence to follow up appointments for continuity of care. Patient agreed with plan. Results Blood Pressure 108 / 62 Vital Signs Date Time Temp Pulse Resp B/P (MAP) Pulse Ox O2 Delivery O2 Flow Rate FiO2 03/18/17 06:00 98.1 97 18 108/62 (77) 96 Laboratory Tests Test 03/16/17 09:47 White Blood Count 2.2 TH/MM3 (4.0-11.0) Platelet Count 28 TH/MM3 (150-450) Laboratory Results Test 03/11/17 08:35 Cholesterol Level 85 MG/DL (120-200) HDL Cholesterol 28.5 MG/DL (40.0-60.0) Hemoglobin A1c 6.9 % (4.3-6.0) LDL Cholesterol 9 MG/DL (0-99) Triglycerides Level 238 MG/DL (42-150) Summary of Procedures None Imaging Last Impressions Bone Biopsy CT 03/13/17 0000 Signed Impressions: Service Date/Time: February 16:48 - CONCLUSION: 1. Uncomplicated CT guided bone marrow aspirate. 2. Uncomplicated CT guided bone marrow biopsy. Claudy Amaya MD Abdomen/Pelvis CT 03/10/17 0000 Signed Impressions: Service Date/Time: Friday, March 10, 2017 22:56 - CONCLUSION: 1. Significant splenomegaly. The spleen is larger from the 2009 exam. No splenic lesion. 2. Prior cholecystectomy. 3. No acute abnormality. Juan Manuel David Jr., MD Pending results at discharge: No Medications # of Antipsychotic meds at D/C: 0 Approp Antipsych med options 1 - Minimum of three failed multiple trials of monotherapy. 2 - Documented plan to taper to monotherapy due to previous use of multiple meds OR cross-taper in progress at D/C. 3 - Documentation of augmentation of Clozapine. 4 - Justification other than those listed in allowable values 1-3, document here : Discharge Discharge Date: Mar 18, 2017 Discharge Diagnosis: (1) Schizoaffective disorder, depressive type Diagnosis: Principal ICD Code: F25.1 - Schizoaffective disorder, depressive type Status: Acute Mental Status Exam at Disch Appearance/Behavior: appears stated age, in casual clothing, calm and cooperative with interview. Speech: normal rate, tone and prosody Mood: "good" Affect: euthymic TP: linear, future oriented TC: denies SI, HI, AVH or delusions Insight/Impulse control/judgment: fair A&O x3 Pt Condition on Discharge: Stable Discharge Disposition: ACLF/NURSING HOME Discharge Instructions Diet Instructions: Heart Healthy Diet Activities you can perform: Regular-No Restrictions Scheduled Appointment: [facility] Appointment Date: Mar 19, 2017 Appointment Time: 7:30 a.m. Discharge Time > 30 minutes Discharge/Advance Care Plan Health Problems: (1) Schizoaffective disorder, depressive type Goals to promote your health * To prevent worsening of your condition and complications * To maintain your health at the optimal level Directions to meet your goals Take your medications as prescribed Follow your dietary instruction Follow activity as directed Keep your appointments as scheduled Take your immunizations and boosters as scheduled If your symptoms worsen call your PCP, if no PCP go to Urgent Care Center or Emergency Room For 13/01 questions related to your inpatient stay or results of tests pending at discharge, please contact Dr. Claudy Friend at Smoking is Dangerous to Your Health. Avoid second hand smoking Claudy Friend MD Mar 18, 2017 16:24
== END 2017-03-18 14:35 | DRG 876 ==
LOC: NEPD 14:38 → NEDA 03-10 10:13 → H260 03-10 11:17
PROVIDERS: ADMIT Student in an Organized Health Care Education/Training Program; ATTEND Student in an Organized Health Care Education/Training Program
PROC: 0QB23ZX Excision of Right Pelvic Bone, Percutaneous Approach, Diagnostic (ICD-10-PCS; principal; 2017-03-13)
DX: F25.1 Schizoaffective disorder, depressive type (principal); D69.6 Thrombocytopenia, unspecified; D70.9 Neutropenia, unspecified; R45.851 Suicidal ideations; F79 Unspecified intellectual disabilities; R16.1 Splenomegaly, not elsewhere classified; I10 Essential (primary) hypertension; K21.9 Gastro-esophageal reflux disease without esophagitis; H54.8 Legal blindness, as defined in USA; R73.9 Hyperglycemia, unspecified; S00.01XA Abrasion of scalp, initial encounter; K74.3 Primary biliary cirrhosis; G44.209 Tension-type headache, unspecified, not intractable; E78.00 Pure hypercholesterolemia, unspecified; R11.2 Nausea with vomiting, unspecified; X83.8XXA Intentional self-harm by other specified means, initial encounter; Z87.891 Personal history of nicotine dependence; Z91.5 Personal history of self-harm
CPT/HCPCS: 38221; 74176; 77012; 80048; 80053; 80061; 80307; 82607; 82728; 82746; 83036; 83540; 83550; 85007; 85025; 85027; 85044; 85097; 85610; 85730; 88184; 88185; 88237; 88264; 88280; 88305; 88311; 88313; 93005; 99152; C1830; G0364; J2250; J3010; Q9963